=== PATIENT | female | born 2000 | race Caucasian/White ===

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

== ENCOUNTER 2019-01-25 16:09 | Inpatient (IN) | payer OTHER ==
--- NOTE | 2019-01-25 17:19 | ED ---
Psychiatric Complaint - HPI Summary HPI Summary: This pt is a 19 y/o female, accompanied by mother, presenting to [facility] for a mental health evaluation today. 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 She notes that when these episodes end she gets manic because she has all the energy she didn' t have during the disassociation. She states these episodes have been worsening since October 2018. Pt notes she is no longer productive at school and is close to a "breaking point" where she might do something "dumb." Denies SI, visual or auditory hallucinations. PMHx anxiety, depression. Pt sees a therapist regularly once a week, saw therapist 5 days ago and last saw therapist today. Per mother, Gabriella (therapist ) called pt's PCP but PCP can't see the pt until 3 days from now. Pt reports marijuana use denies any tobacco or alcohol use. - History Of Current Complaint Chief Complaint: EDMentalHealth Time Seen by Provider: 01/25/19 16:50 Hx Obtained From: Patient, Family/Director Emergency - Mother Hx Last Menstrual Period: on BCP's Onset/Duration: Lasting Weeks, Still Present Timing: Weeks Severity Currently: Moderate Aggravating Factor(s): Nothing Alleviating Factor(s): Nothing Associated Signs And Symptoms: Negative: Hallucinating Related History: Positive For: Prior Psychiatric Issues Has Suicidal: Denies: Thoughts, With A Plan Has Homicidal: Denies: Thoughts, With A Plan - Allergies/Home Medications Allergies/Adverse Reactions: Allergies Allergy/AdvReac Type Severity Reaction Status Date / Time No Known Allergies Allergy Verified 01/25/19 16:40 Home Medications: Home Medications Metformin ER (NF) 100 mg PO BID 01/25/19 [History Confirmed 01/25/19] Norgestimate-Ethinyl Estradiol [Sprintec 28 Day Tablet] 1 each PO DAILY [History Confirmed 01/25/19] PMH/Surg Hx/FS Hx/Imm Hx Endocrine/Hematology History: Denies: Hx Diabetes Cardiovascular History: Denies: Hx Hypertension Psychiatric History: Reports: Hx Anxiety, Hx Eating Disorder, Hx Depression Denies: Hx of Violent Episodes Against Others Infectious Disease History: No Infectious Disease History: Denies: Traveled Outside the [place] in Last 30 Days - Family History Known Family History: Positive: Hypertension Negative: Cardiac Disease, Diabetes - Social History Alcohol Use: Rare Substance Use Type: Reports: Marijuana Substance Use Comment - Amount & Last Used: 5 times a week Smoking Status (MU): Never Smoked Tobacco Have You Smoked in the Last Year: No Review of Systems Negative: Fever ENT: Negative Cardiovascular: Negative Respiratory: Negative Psychological: Other - POSITIVE: disassociation with body Negative: Other - NEGATIVE: SI, auditory or visual hallucinations All Other Systems Reviewed And Are Negative: Yes Physical Exam - Summary Physical Exam Summary: Constitutional: Well-developed, Well-nourished, Alert. (-) Distressed Skin: Warm, Dry HENT: Normocephalic; Atraumatic Eyes: Conjunctiva normal Neck: Musculoskeletal ROM normal neck. (-) JVD, (-) Stridor, (-) Tracheal deviation Cardio: Rhythm regular, rate normal, Heart sounds normal; Intact distal pulses; The pedal pulses are 2+ and symmetric. Radial pulses are 2+ and symmetric. Pulmonary/Chest wall: Effort normal. (-) Respiratory distress, (-) Wheezes, (-) Rales Abd: Soft, (-) tenderness, (-) Distension, (-) Guarding, (-) Rebound Musculoskeletal: (-) Edema Neuro: Alert, Oriented x3 Psych: Mood and affect Normal Triage Information Reviewed: Yes Vital Signs On Initial Exam: Initial Vitals Temp Pulse Resp BP Pulse Ox 97.8 F 100 18 135/98 98 01/25/19 16:17 01/25/19 16:17 01/25/19 16:17 01/25/19 16:17 01/25/19 16:17 Vital Signs Reviewed: Yes Procedures - Sedation Patient Received Moderate/Deep Sedation with Procedure: No Diagnostics - Vital Signs Vital Signs Temp Pulse Resp BP Pulse Ox 01/25/19 16:17 97.8 F 100 18 135/98 98 - Laboratory Result Diagrams: 01/25/19 22:56 01/25/19 22:56 Lab Statement: Any lab studies that have been ordered have been reviewed, and results considered in the medical decision making process. Course/Dx - Course Assessment/Plan: Pt is a 19 y/o female, accompanied by mother, presenting to [facility] for a mental health evaluation today. 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 She notes that when these episodes end she gets manic because she has all the energy she didn't have during the disassociation. She states these episodes have been worsening since October 2018. Pt notes she is no longer productive at school and is close to a "breaking point" where she might do something "dumb.". Patient is a healthy young woman. Pt will be signed out to Dr. Villegas, pending disposition, awaiting mental health evaluation. - Differential Dx/Clinical Impression Provider Diagnosis: Depressive disorder Discharge ED - Sign-Out/Discharge Documenting (check all that apply): Sign-Out Patient Signing out patient TO: Prakash Villegas - pending MHE - Discharge Plan Condition: Stable Disposition: [facility]CHIATRIC FACILITY-[facility] – [place], [place] - Billing Disposition and Condition Condition: STABLE Disposition: Psychiatric Facility [facility] [place], [place] - Attestation Statements Document Initiated by Arcelia: Yes Documenting Scribe: Jessica Fuentes Provider For Whom Arcelia is Documenting (Include Credential): Vincenzo Davis MD Scribe Attestation: Jessica Stewart, scribed for Vincenzo Davis MD on 02/07/19 at 0924. Scribe Documentation Reviewed: Yes Provider Attestation: The documentation as recorded by the Jessica keys accurately reflects the service I personally performed and the decisions made by me, Vincenzo Davis MD Status of Scribe Document: Viewed
--- OUTSIDE RECORDS SUMMARY | 2019-01-25 17:33 | XMS REPORT | Continuity of Care Document ---
:1999 External Reference #:[id number] Author Name Denise Roper MD, PHD Address [address] [place] [address], [address] [place] [address] Care Team Providers Name Role Phone Denise Roper MD, PHD - Family Care Team Information [facility] - Care Team Information [facility] [phone] Endocrinology, Diabetes & Metabolism Problems Active Problems Provider Date Polycystic ovary syndrome Denise Roper MD, PHD Onset: 05/31/2018 Morbid obesity Denise Roper MD, PHD Onset: 05/31/2018 Moderate recurrent major depression Denise Roper MD, PHD Onset: 2018 Premenstrual dysphoric disorder Denise Roper MD, PHD Onset: 05/31/2018 Venereal disease screening Denise Roper MD, PHD Onset: 05/31/2018 Edema Denise Roper MD, PHD Onset: 05/31/2018 Arthralgia of the ankle and/or foot Denise Roper MD, PHD Onset: 2018 Fibrositis of neck Denise Roper MD, PHD Onset: 06/14/2018 Polycystic ovary syndrome Denise Roper MD, PHD Onset: 08/23/2018 Dysfunctional uterine bleeding Denise Roper MD, PHD Onset: 08/23/2018 Autism spectrum disorder Denise Roper MD, PHD Onset: 09/13/2018 Sensory discomfort Denise Roper MD, PHD Onset: 09/13/2018 Social History Type Date Description Comments Sex Unknown Tobacco Use Start: Unknown Never Smoked Cigarettes Smoking Status Reviewed: 10/18/18 Never Smoked Cigarettes Tobacco Use Start: Unknown Patient has never smoked Allergies, Adverse Reactions, Alerts Description No Known Drug Allergies Medications Active Medications SIG Qnty Indications Ordering Provider Date Sprintec 28 1 tab by mouth 120tabs N92.1 Denise Roper, 10/18/2018 every day PHD AREN 0.25-35mg-mcg Tablets Hibiclens use on all skin 946ml A49.02 Denise Roper, 09/07/2018 4% Liquid as body wash for PHD AREN 5 days every month. Metformin HCL ER Take 2 Tablets 180tabs E28.2 Denise Roper, 05/31/2018 500mg By Mouth Every PHD AREN Tablets ER 24HR Morning B12 Fast Dissolve 1 tab by mouth 90tabs Denise Roper, 05/31/2018 every day PHD AREN 5000mcg Tablets Dispers Nac 600 1 cap by mouth 90caps Denise Roper, 05/31/2018 600mg Capsules three times a PHD AREN day after meals Chromium Picolinate 1 tab by mouth 90tabs Denise Roper, 05/31/2018 Ultra every morning PHD AREN 500mcg Tablets with 16oz water Cranberry 1 by mouth every Unknown 200mg day Capsules Multi Vitamin Daily 1 by mouth every Unknown day Tablets Calcium, Magnesium, 1 by mouth every Unknown Zinc day Vitamin D3 Maximum 1 a a week Unknown Strength 5000Unit Capsules Vitamin B-12 1 tabl by mouth Unknown Natural daily 1000mcg Tablets Topiramate 2 tabs by mouth 180tabs Denise Roper, 100mg every morning PHD AREN Tablets Venlafaxine HCL ER Take 1 Capsule 30caps F33.1 Denise Roper, Every Morning PHD AREN 150mg Caps ER 24HR With 75MG For Total Dose 225MG F32.81 History Medications Biotin 5000 1 by mouth every day [place], 12/14/2018 - 5mg MD Denise, Unknown Capsules PHD Biotin 1 by mouth every day [place], 12/14/2018 - 2500mcg MD Denise, 12/14/2018 Capsules PHD Biotin takes 2,000 mcg [place], 12/14/2018 - 1000mcg daily MD Denise, Unknown Tablets PHD Fluconazole 1 by mouth once 1tabs Z97.5 [place], 09/13/2018 - 150mg MD Denise, 10/18/2018 Tablets PHD Clindamycin HCL 1 cap by mouth twice 6caps Z97.5 [place], 09/13/2018 - a day for 3 days MD Denise, Unknown 300mg Capsules PHD Sprintec 28 1 tab by mouth every 168tabs N92.1 [place], 08/23/2018 - day continuously MD Denise, 09/07/2018 0.25-35mg-mcg PHD Tablets Immunizations Description No Information Available Vital Signs Date Vital Result Comment 12/14/2018 2:35pm BP Systolic 112 mmHg BP Diastolic 76 mmHg Body Temperature 97.9 F Heart Rate 88 /min Respiratory Rate 19 /min Weight 253.12 lb Weight Percentile >97th O2 % BldC Oximetry 98 % room air 10/18/2018 3:28pm BP Systolic 112 mmHg BP Diastolic 74 mmHg Body Temperature 97.8 F Heart Rate 94 /min Respiratory Rate 18 /min Height 62 inches 5'2" Weight 255.00 lb BMI (Body Mass Index) 46.6 kg/m2 BSA (Body Surface Area) 2.12 m2 [place] body weight in kilograms 50 kg Height Percentile 18 % Weight Percentile >97th O2 % BldC Oximetry 96 % Results Test Date Facility Test Result H/L Range Note Genital Culture 09/07/2018 [facility] Gram Stain GRAM STAIN 1, 2 W/ Gram Stain [address] INDIC <[place] [address] NOTE> [phone] Gram Stain MODERATE GR POS. <SEE NOTE> 3 Gram Stain NO WHITE BLOOD C <SEE NOTE> 4 Genital Culture GENITAL NOHEMY Chlmaydia/GC/Trichomonas 09/07/2018 [facility] Chlamydia NEGATIVE Negative PCR [address] trachomatis, [place] [address] PCR [phone] Neisseria gonorrhoeae, PCR NEGATIVE Negative 5 Trichomonas vaginalis PCR NEGATIVE Negative 1 Z30.430 2 GRAM STAIN INDICATES NORMAL GENITAL NOHEMY 3 MODERATE GR POS. BACILLI SUGGESTIVE OF LACTOBACILLUS SP. 4 NO WHITE BLOOD CELLS 5 A negative result for either C. trachomatis and/or N. gonorrhoeae does not preclued an infection because results are dependent on adequate specimen collection, absence of inhibitors, and sufficient DNA to be detected. 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, PHD arthritis R60.0 Localized edema M25.579 Pain in unspecified ankle and joints of unspecified foot E28.2 Polycystic ovarian syndrome M79.7 Fibromyalgia E66.01 Morbid (severe) obesity due to excess calories M54.5 Low back pain Office Visit 10/18/2018 3:30p Family Roper Z30.432 Encounter for Medicine Je Walker MD, removal of Main PHD intrauterine contraceptive device Z97.5 Presence of (intrauterine) contraceptive device E28.2 Polycystic ovarian syndrome N92.1 Excessive and frequent menstruation with irregular cycle F41.9 Anxiety disorder, unspecified M79.7 Fibromyalgia F32.81 Premenstrual dysphoric disorder Office Visit 09/13/2018 9:00a [facility] Kenny Roper Z97.5 Presence of Je Walker MD, (intrauterine) PHD contraceptive device F41.9 Anxiety disorder, unspecified Z13.41 Encounter for autism screening Office Visit 09/07/2018 8:30a Family Roper Z30.430 Encounter for Medicine Je Walker MD, insertion of Main PHD intrauterine contraceptive device E28.2 Polycystic ovarian syndrome E66.01 Morbid (severe) obesity due to excess calories L72.3 Sebaceous cyst N92.1 Excessive and frequent menstruation with irregular cycle F41.9 Anxiety disorder, unspecified Office Visit 08/23/2018 3:30p Family Kenny Roper F32.81 Premenstrual Je Walker MD, dysphoric disorder PHD E28.2 Polycystic ovarian syndrome E66.01 Morbid (severe) obesity due to excess calories M79.7 Fibromyalgia N92.1 Excessive and frequent menstruation with irregular cycle Assessments Date Code Description Provider 12/14/2018 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 Denise Roper MD, PHD 12/14/2018 R60.0 Localized edema Denise Roper MD, PHD 12/14/2018 M25.579 Pain in unspecified ankle and joints of Denise Roper MD, PHD unspecified foot 12/14/2018 E28.2 Polycystic ovarian syndrome Denise Roper MD, PHD 12/14/2018 M79.7 Fibromyalgia Denise Roper MD, PHD 12/14/2018 E66.01 Morbid (severe) obesity due to excess Denise Roper MD , PHD calories 12/14/2018 M54.5 Low back pain Denise Roper MD, PHD 10/18/2018 Z30.432 Encounter for removal of intrauterine Denise Roper MD , PHD contraceptive device 10/18/2018 Z97.5 Presence of (intrauterine) contraceptive Denise Roper MD, PHD device 10/18/2018 E28.2 Polycystic ovarian syndrome Denise Roper MD, PHD 10/18/2018 N92.1 Excessive and frequent menstruation with Denise Roper MD, PHD irregular cycle 10/18/2018 F41.9 Anxiety disorder, unspecified Denise Roper MD, PHD 10/18/2018 M79.7 Fibromyalgia Denise Roper MD, PHD 10/18/2018 F32.81 Premenstrual dysphoric disorder Denise Roper MD, PHD 09/13/2018 Z97.5 Presence of (intrauterine) contraceptive Denise Roper MD, PHD device 09/13/2018 F41.9 Anxiety disorder, unspecified Denise Roper MD, PHD 09/13/2018 Z13.41 Encounter for autism screening Denise Roper MD, PHD 09/07/2018 Z30.430 Encounter for insertion of intrauterine Denise Roper MD, PHD contraceptive device 09/07/2018 E28.2 Polycystic ovarian syndrome Denise Roper MD, PHD 09/07/2018 E66.01 Morbid (severe) obesity due to excess Denise Roper MD , PHD calories 09/07/2018 L72.3 Sebaceous cyst Denise Roper MD, PHD 09/07/2018 N92.1 Excessive and frequent menstruation with Denise Roper MD, PHD irregular cycle 09/07/2018 F41.9 Anxiety disorder, unspecified Denise Roper MD, PHD 08/23/2018 F32.81 Premenstrual dysphoric disorder Denise Roper MD, PHD 08/23/2018 E28.2 Polycystic ovarian syndrome Denise Roper MD, PHD 08/23/2018 E66.01 Morbid (severe) obesity due to excess Denise Roper MD , PHD calories 08/23/2018 M79.7 Fibromyalgia Denise Roper MD, PHD 08/23/2018 N92.1 Excessive and frequent menstruation with Denise Roper MD, PHD irregular cycle Plan of Treatment 12/14/2018 - Denise Roper MD, PHD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New Labs: Lyme Igg & Igm By Western Blot, Ordered: 12/14/18Sedimentation Rate, Ordered : 12/14/18C-Reactive Protein,Quant, Ordered: 12/14/18Celiac Disease Comp AB Profile, Ordered: 12/14/18Rheumatoid Factor Screen, Ordered: 12/14/18CCP Igg/ Iga Antibodies, Ordered: 12/14/18CBC W/Automated Diff, Ordered: Comprehensive Metabolic Panel, Ordered: 12/14/18Comprehensive Madhuri Panel, Ordered: 12/14/18New Xrays:Hand Complete 4 Views, Ordered: 12/14/18R60.0 Localized crpnrP89.579 Pain in unspecified ankle and joints of unspecified footNew Xrays:Ankle Complete- 4 Views, Ordered: 12/14/18E28.2 Polycystic ovarian ksjvtglqB68.7 VucangzbgandX22.01 Morbid (severe) obesity due to excess cgnuwdcbD07.5 Low back painNew Labs:Vitamin D,25-Hydroxy, Ordered: 12/14/18New Xrays:Spine, Lumbosacral Complete, Ordered: 12/14/18AllNew Medication:Biotin 5000 5 mg - 1 by mouth every dayBiotin 2500 mcg - 1 by mouth every dayBiotin 1000 mcg - takes 2,000 mcg daily Functional Status Functional Condition Comment Date Status Independent with all ADL's Active Mental Status Description No Information Available Referrals Refer to Reason for Referral Status Appt Date [facility] Need help with PCOS, Mood, Dysmenorrhea, Sent 2019 GnRH, Anti-mullerian, Obesity, etc. affecting mental health and physical health severely [address] [phone] [phone]
--- NOTE | 2019-01-25 19:34 | ED ---
Progress - Progress Note Progress Note: Pt is a signout from Dr. Davis at 1900 on 01/25/19 pending MHE. Re-Evaluation - Re-Evaluation 1st re-eval Re-Evaluation Time: 02:48 Change: Unchanged Comment: As per Dr. Morris, the pt will be admitted to [facility] with dx of depressive disorder. Course/Dx - Course Course Of Treatment: Patient was signed out from Dr. Davis. Patient was pending mental health evaluation. Mental health evaluators admitted patient to the B[facility]. - Diagnoses Provider Diagnoses: Depressive disorder Discharge ED - Sign-Out/Discharge Documenting (check all that apply): Patient Departure, Receiving Sign-Out Receiving patient FROM: Vincenzo Davis - Discharge Plan Condition: Stable Disposition: PSYCHIATRIC FACILITY-[facility] [place] Referrals: Care [facility] [Outside] - Billing Disposition and Condition Condition: STABLE Disposition: Psychiatric Facility [facility] [place] [facility] - Attestation Statements Document Initiated by Scribe: Yes Documenting Scribe: Danitza Mistry Provider For Whom Arcelia is Documenting (Include Credential): Prakash Villegas MD. Scribe Attestation: Danitza Stewart, chiquitaed for Prakash Villegas MD. on 01/26/19 at 0348. Scribe Documentation Reviewed: Yes Provider Attestation: The documentation as recorded by the Danitza keys accurately reflects the service I personally performed and the decisions made by Prakash sherman MD. Status of Scribe Document: Viewed
[2019-01-25 23:01] LABS: ABS Eosinophils 0.1 10^3/ul (0-0.6); ABS Lymphocytes 3.1 10^3/ul (1.0-4.8); ABS Monocytes 0.6 10^3/ul (0-0.8); ABS Neutrophils 3.4 10^3/ul (1.5-7.7); Eosinophil % 1.7 %; Hematocrit 42 % (35-47); Hemoglobin 14.4 g/dL (12.0-16.0); Lymphocyte % 42.7 %; Mean Corpuscular HGB Conc 34 g/dL (31-36); Mean Corpuscular Hemoglobin 30 pg (27-31); Mean Corpuscular Volume 88 fL (80-97); Mean Platelet Volume 6.9 fL (7.4-10.4); Platelet Count 277 10^3/uL (150-450); Red Blood Count 4.78 10^6 /uL (3.70-4.87); Red Cell Distribution Width 13 % (10-15); White Blood Count 7.3 10^3/uL (3.5-10.8)
[2019-01-25 23:18] LABS: ALT 11 U/L (7-52); AST 15 U/L (13-39); Albumin/Globulin Ratio 1.3 (1-3); Alkaline Phosphatase 57 U/L (34-104); Anion Gap 9 mmol/L (2-11); BUN/Creatinine Ratio 10.8 (8-20); Blood Urea Nitrogen 8 mg/dL (6-24); CO2 Carbon Dioxide 20 mmol/L (22-32); Calcium 9.1 mg/dL (8.6-10.3); Chloride 108 mmol/L (101-111); EGFR African American 121.1 (>60); EGFR Non-African American 100.1 (>60); Globulin 3.2 g/dL (2-4); Glucose 95 mg/dL (70-100); Potassium 3.6 mmol/L (3.5-5.0); Sodium 137 mmol/L (135-145); Total Protein 7.2 g/dL (6.4-8.9)
[2019-01-25 23:25] LABS: HCG Pregnancy < 0.60 mIU/mL
[2019-01-25 23:42] LABS: Acetaminophen < 15 mcg/mL; Alcohol < 10 mg/dL (<10); Salicylate < 2.50 mg/dL (<30)
[2019-01-25 23:58] LABS: TSH (Thyroid Stimulating Horm) 3.42 mcIU/mL (0.34-5.60)
[2019-01-26 00:29] LABS: Urine Appearance Turbid; Urine Bilirubin Negative (Negative); Urine Blood Negative (Negative); Urine Color Yellow; Urine Glucose Negative (Negative); Urine Ketones Negative (Negative); Urine Nitrite Negative (Negative); Urine Protein Negative (Negative); Urine Specific Gravity 1.017 (1.010-1.030); Urine Urobilinogen Negative (Negative)
[2019-01-26 00:45] LABS: Urine Benzodiazepine Screen None Detected (None Detect); Urine Opiates Screen None Detected (None Detect)
[2019-01-26] MEDS ORDERED: Al Hydrox/Mg Hydrox/Simet LIQ* 30 ML UDC PO PRN (05:39)
[2019-01-26] MEDS ORDERED: Influenza VAC *QUAD* 2019-20* 0.5 ML SYRINGE IM ONE (09:00)
[2019-01-26] MEDS: Vitamin THERAPEUTIC TAB PO SCH (09:42)
[2019-01-26] MEDS: Venlafaxine EXT RELEASE CAP* 75 MG PO SCH (09:42)
[2019-01-26] MEDS: Topiramate TAB(*) 100 MG PO SCH (09:42)
[2019-01-26] MEDS: SPRINTEC PO SCH (09:48)
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
[2019-01-26] MEDS ORDERED: metFORMIN* 500 MG TAB PO SCH (12:00)
[2019-01-26] MEDS: Acetaminophen TAB* 325 MG PO PRN (13:18)
[2019-01-26] MEDS: Venlafaxine EXT RELEASE CAP* 37.5 MG PO SCH (13:19)
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
[2019-01-26] MEDS: metFORMIN* 500 MG TAB PO SCH (19:37)
--- NOTE | 2019-01-26 20:28 | EEG ---
ELECTROENCEPHALOGRAPHY: DATE OF STUDY: 01/26/19 - ROOM #212 DATE READ: 01/26/19 ORDERED BY: Dr. Yakov Mcdonough. CLINICAL PROBLEM: Ms. Jenkins is a 19-year-old female with dissociation disorder that she feels like is getting worse. She has out of body dissociation. She feels like her limbs are detached throughout her body. This EEG was requested to evaluate for epileptiform discharges. CLINICAL STATE: Awake and sleep. REPORT: The waking background showed appropriate organization with clearly defined anterior-posterior voltage and frequency gradients. There was a well- defined posterior dominant rhythm of 10 Hz, which was symmetrical and showed normal reactivity. Anteriorly, there was an expected pattern of lower voltage, irregular, mixed faster frequency. There was an isolated small sharp spike that was seen in the left temporal region during drowsiness. This had a morphology that consisted with less than 50 microvolts as well as less than 50- millisecond sharp spike that is consistent with a normal variant called benign epileptiform transients of sleep. Hyperventilation and photic stimulation were not performed. Single electrode EKG showed normal sinus rhythm with a rate of 75 beats per minute. Attenuation of the occipital rhythm accompanied drowsiness. The sleep background was appropriately organized with well-developed spindles and vertex waves. These sleep transients showed appropriate morphology and are bilaterally synchronous and symmetrical. CLINICAL IMPRESSION: This is a normal awake and sleep EEG. There were no epileptiform discharges or electro-graphic seizures. A normal interictal EEG does not exclude or support the diagnosis of epilepsy. To increase the sensitivity of picking up interictal epileptiform discharges, a repeat study in 3-4 months may be required. [id number]/[facility] #: [id number] SAHARA
[2019-01-27] MEDS: Venlafaxine EXT RELEASE CAP* 75 MG PO SCH (08:55)
[2019-01-27] MEDS: Venlafaxine EXT RELEASE CAP* 37.5 MG PO SCH (08:55)
[2019-01-27] MEDS: metFORMIN* 500 MG TAB PO SCH ×2 (08:56→17:35)
[2019-01-27] MEDS: Vitamin THERAPEUTIC TAB PO SCH (08:56)
[2019-01-27] MEDS: Topiramate TAB(*) 100 MG PO SCH (08:57)
--- NOTE | 2019-01-27 10:43 | PN ---
Subjective - Subjective Date of Service: 01/27/19 Service Type: 84323 Hosp care 35 min high complexity Subjective: Nursing Report: Patient was visible on unit, no behavioral incidents. CC: "I had a event Patient was seen and evaluated today in the common room. The patient reported she had a dissociative event during the encounter. Her vital signs were recorded. She reported having an adequate appetite and interrupted sleep. The patient reports attending and participating in day groups. Per nursing no behavioral issues or overnight events reported. Objective - General Observations Appearance: Disheveled Appears Stated Age: Yes Stature: Overweight Posture: Slumped Eye Contact: Average Behavior/Activity: Accelerated - Interaction Observations Attitude Towards Examiner: Cooperative Stated Mood: Dysphoric Affect: Blunted Speech Pattern/Tone: Clear Thought Process: Coherent Perception: Depersonalization Thought Content: Self-Deprecatory Hallucination Type: None Delusion Type: Somatic - Cognitive Function Orientation: A&O x 4 Level of Consciousness: Awake Assessment - Assessment Merits Inpatient Hospitalization: For Immediate Safety Clinical Impression: 19 year old with history of Major depressive disorder, Panic disorder, PTSD, and multiple hospitalizations including to [facility] came to the hospital for having dissociating events and was admitted to the [facility] at [facility]. Plan - Plan Treatment Plan: Name: JAM Xiao CASE Birthdate: 2000 [id number] # Q30 minute observation with staff pass # The patient requires psychiatric inpatient admission at this time to assure safety, receive treatment and work toward stabilization. # B-HCG was ordered and results are negative. # Obtain collateral information obtained from her mother who confirmed no firearms, stockpiles of medications, and is not worried about suicide at this time. # Collaboration with Social Work # Neurology consulted completed and recommendations appreciated. EEG results are negative. # Discussed how Topamax can cause sedation and changes in cognition and how it can lead to an increase the events of dissociation. However the patient accepts these risks and prefers to decrease and discontinue medication on a outpatient basis. # Social work in process of securing a follow up appointment. # Tentative Discharge Tomorrow #Goals before discharge include: Reduce dissociation events Sodium 137 mmol/L (135-145) 01/25/19 22:56 Potassium 3.6 mmol/L (3.5-5.0) 01/25/19 22:56 BUN 8 mg/dL (6-24) 01/25/19 22:56 Creatinine 0.74 mg/dL (0.51-0.95) 01/25/19 22:56 Calcium 9.1 mg/dL (8.6-10.3) 01/25/19 22:56 AST 15 U/L (13-39) 01/25/19 22:56 ALT 11 U/L (7-52) 01/25/19 22:56 Vital Signs Temp Pulse Resp BP Pulse Ox 97.1 F 85 16 133/89 100 01/26/19 22:54 01/26/19 22:54 01/26/19 22:54 01/26/19 22:54 01/26/19 22:54 Continued Medication Management: Continue Outpt Medication Medications: Current Medications Acetaminophen (Tylenol Tab*) 650 mg PO Q4H PRN PRN Reason: PAIN or TEMP > 101 F Last Admin: 01/27/19 00:00 Dose: 650 mg Al Hydrox/Mg Hydrox/Simethicone (Maalox Plus*) 30 ml PO Q4H PRN PRN Reason: INDIGESTION Metformin HCl (Glucophage*) 500 mg PO 0800,1700 [facility] Last Admin: 01/27/19 08:56 Dose: 500 mg Multivitamins (Theragran Tab*) 1 tab PO DAILY [facility] Last Admin: 01/27/19 08:56 Dose: 1 tab Pto: Oral (Contraceptive) 1 dose PO QAM [facility] Last Admin: 01/26/19 09:48 Dose: Not Given Topiramate (Topamax(*)) 200 mg PO DAILY [facility] Last Admin: 01/27/19 08:57 Dose: 200 mg Venlafaxine HCl (Effexor Xr Cap*) 150 mg PO DAILY [facility] Last Admin: 01/27/19 08:55 Dose: 150 mg Venlafaxine HCl (Effexor Xr Cap*) 37.5 mg PO DAILY [facility] Last Admin: 01/27/19 08:55 Dose: 37.5 mg - Discharge Plan Discharge Plan: Inpatient Hospitalization
[2019-01-27] MEDS: SPRINTEC PO SCH (11:52)
[2019-01-27] MEDS: Acetaminophen TAB* 325 MG PO PRN ×2 (14:59)
[2019-01-27] MEDS ORDERED: Melatonin 3 MG TAB PO SCH (21:00)
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
[2019-01-28] MEDS: Topiramate TAB(*) 100 MG PO SCH (09:15)
[2019-01-28] MEDS: Vitamin THERAPEUTIC TAB PO SCH (09:15)
[2019-01-28] MEDS: metFORMIN* 500 MG TAB PO SCH (09:15)
[2019-01-28] MEDS: Venlafaxine EXT RELEASE CAP* 75 MG PO SCH (09:16)
[2019-01-28] MEDS: Venlafaxine EXT RELEASE CAP* 37.5 MG PO SCH (09:16)
[2019-01-28] MEDS: SPRINTEC PO SCH (09:17)
[2019-01-28 14:07] VITALS: BP 126/72
== END 2019-01-28 13:49 | disposition home or self-care (01) | DRG 754 ==
LOC: ED 16:09 → BSU 01-26 04:28
PROVIDERS: ADMIT Psychiatry & Neurology Psychiatry; ATTEND Psychiatry & Neurology Psychiatry
DX: F32.9 Major depressive disorder, single episode, unspecified (principal); R45.851 Suicidal ideations; Z68.42 Body mass index [BMI] 45.0-49.9, adult; F43.10 Post-traumatic stress disorder, unspecified; F41.0 Panic disorder [episodic paroxysmal anxiety]; E28.2 Polycystic ovarian syndrome; G89.4 Chronic pain syndrome; E66.9 Obesity, unspecified; Z62.810 Personal history of physical and sexual abuse in childhood; F44.9 Dissociative and conversion disorder, unspecified; Z79.899 Other long term (current) drug therapy; Z81.8 Family history of other mental and behavioral disorders; Z82.49 Family history of ischemic heart disease and other diseases of the circulatory system
CPT/HCPCS: 36415; 80053; 80061; 80307; 80320; 80329; 81003; 82607; 83036; 84443; 84702; 85025; 90686; 95819; 99222; 99233; 99238; 99283; A9270-GY; G0480

== ENCOUNTER 2019-02-08 11:39 | Emergency (ER) | payer OTHER ==
--- OUTSIDE RECORDS SUMMARY | 2019-02-08 11:47 | XMS REPORT | Continuity of Care Document ---
:2000 External Reference #:[id number] Author Name Denise Roper MD, PHD Address [address] [place] [address], [address] [place] [address] Care Team Providers Name Role Phone Denise Roper MD, PHD - Family Care Team Information Makeup Artist Medicine [facility] - Care Team Information Makeup Artist [phone] Endocrinology, Diabetes & Metabolism Problems Active Problems [...] Unknown Never Smoked Cigarettes Smoking Status Reviewed: 02/01/19 Never Smoked Cigarettes Tobacco Use Start: Unknown Patient has never smoked Allergies, Adverse Reactions, Alerts Description No Known Drug Allergies Medications Active Medications SIG Qnty Indications Ordering Provider Date Topiramate Take 3.5 tablets 120tabs Denise Roper, 02/01/2019 50mg daily for 1-2 PHD AREN Tablets weeks, then down 3 tablets daily for 1-2 weeks, will continue to taper off as tolerated. Gabapentin 1 caps by mouth 30caps M79.7 Denise Roper, 02/01/2019 100mg at bedtime as PHD AREN Capsules needed Hydroxyzine HCL 1-2 by mouth 14tabs Denise Roper, 01/16/2019 25mg three times a day PHD AREN Tablets as needed for anxiety Sprintec 28 1 tab by mouth 120tabs N92.1 Denise Roper, 10/18/2018 every day PHD AREN 0.25-35mg-mcg Tablets Hibiclens use on all skin 946ml A49.02 Denise Roper, 09/07/2018 4% Liquid as body wash for PHD AREN 5 days every month. Metformin HCL ER Take 2 Tablets By 180tabs E28.2 Denise Roper, 2018 Mouth Every PHD AREN 500mg Tablets ER Morning 24HR B12 Fast Dissolve 1 tab by mouth 90tabs Denise Roper, 05/31/2018 every day PHD AREN 5000mcg Tablets Dispers Nac 600 1 cap by mouth 90caps Denise Roper, 05/31/2018 600mg three times a day PHD AREN Capsules after meals Chromium Picolinate 1 tab by mouth 90tabs Denise Roper, 05/31/2018 Ultra every morning PHD AREN 500mcg Tablets with 16oz water Venlafaxine HCL ER 1 tablet daily by 90tabs Denise Roper, mouth PHD AREN 150mg Tablets ER 24HR Venlafaxine HCL ER 1 by mouth every 90caps Denise Roper, day PHD AREN 37.5mg Caps ER 24HR Cranberry 1 by mouth every Unknown 200mg day Capsules Multi Vitamin Daily 1 by mouth every Unknown day Tablets Calcium, Magnesium, 1 by mouth every Unknown Zinc day Vitamin D3 Maximum 1 a a week Unknown Strength 5000Unit Capsules Vitamin B-12 1 tabl by mouth Unknown Natural daily 1000mcg Tablets History Medications Biotin 5000 1 by mouth every day [facility], 12/14/2018 - 5mg MD Denise, Unknown Capsules PHD Biotin 1 by mouth every day [facility], 12/14/2018 - 2500mcg MD Denise, 12/14/2018 Capsules PHD Biotin takes 2,000 mcg [facility], 12/14/2018 - 1000mcg daily MD Denise, Unknown Tablets PHD Fluconazole 1 by mouth once 1tabs Z97.5 [facility], 09/13/2018 - 150mg MD Denise, 10/18/2018 Tablets PHD Clindamycin HCL 1 cap by mouth twice 6caps Z97.5 [facility], 09/13/2018 - a day for 3 days MD Denise, Unknown 300mg Capsules PHD Sprintec 28 1 tab by mouth every 168tabs N92.1 [facility], 08/23/2018 - day continuously MD Denise, 09/07/2018 0.25-35mg-mcg PHD Tablets Immunizations Description No Information Available Vital Signs Date Vital Result Comment 02/01/2019 3:20pm BP Systolic 117 mmHg BP Diastolic 81 mmHg Body Temperature 97.5 F Heart Rate 90 /min Respiratory Rate 16 /min Height 62 inches 5'2" Weight 254.00 lb BMI (Body Mass Index) 46.5 kg/m2 BSA (Body Surface Area) 2.12 m2 [place] body weight in kilograms 50 kg O2 % BldC Oximetry 98 % 12/14/2018 2:35pm BP Systolic 112 mmHg BP Diastolic 76 mmHg Body Temperature 97.9 F Heart Rate 88 /min Respiratory Rate 19 /min Weight 253.12 lb Weight Percentile >97th O2 % BldC Oximetry 98 % room air Results Test Date Facility Test Result H/L Range Note CBC Auto 01/25/2019 [facility] White Blood 7.3 10^3/ uL Normal 3.5-10.8 Diff [phone] Count Red Blood Count 4.78 10^6/uL Normal 3.70-4.87 Hemoglobin 14.4 g/dL Normal 12.0-16.0 Hematocrit 42 % Normal 35-47 Mean Corpuscular Volume 88 fL Normal 80-97 Mean Corpuscular Hemoglobin 30 pg Normal 27-31 Mean Corpuscular HGB Conc 34 g/dL Normal 31-36 Red Cell Distribution Width 13 % Normal 10-15 Platelet Count 277 10^3/uL Normal 150-450 Mean Platelet Volume 6.9 fL Low 7.4-10.4 Abs Neutrophils 3.4 10^3/uL Normal 1.5-7.7 Abs Lymphocytes 3.1 10^3/uL Normal 1.0-4.8 Abs Monocytes 0.6 10^3/uL Normal 0-0.8 Abs Eosinophils 0.1 10^3/uL Normal 0-0.6 Abs Basophils 0.0 10^3/uL Normal 0-0.2 Abs Nucleated RBC 0.0 10^3/uL Granulocyte % 46.7 % Lymphocyte % 42.7 % Monocyte % 8.4 % Eosinophil % 1.7 % Basophil % 0.5 % Nucleated Red Blood Cells % 0.0 Comp Metabolic 01/25/2019 [facility] Sodium 137 mmol/ L Normal 135-145 Panel [phone] Potassium 3.6 mmol/L Normal 3.5-5.0 Chloride 108 mmol/L Normal 101-111 Co2 Carbon Dioxide 20 mmol/L Low 22-32 Anion Gap 9 mmol/L Normal 2-11 Glucose 95 mg/dL Normal 70-100 Blood Urea Nitrogen 8 mg/dL Normal 6-24 Creatinine 0.74 mg/dL Normal 0.51-0.95 BUN/Creatinine Ratio 10.8 Normal 8-20 Calcium 9.1 mg/dL Normal 8.6-10.3 Total Protein 7.2 g/dL Normal 6.4-8.9 Albumin 4.0 g/dL Normal 3.2-5.2 Globulin 3.2 g/dL Normal 2-4 Albumin/Globulin Ratio 1.3 Normal 1-3 Total Bilirubin 0.20 mg/dL Normal 0.2-1.0 Alkaline Phosphatase 57 U/L Normal 34-104 Alt 11 U/L Normal 7-52 Ast 15 U/L Normal 13-39 Egfr Non- 100.1 >60 Egfr 121.1 >60 1 Laboratory test 01/25/2019 [facility] Acetaminophen < 15 g/mL 2 finding [phone] Alcohol < 10 mg/dL Normal <10 Salicylate < 2.50 mg/dL <30 HCG < 0.60 mIU/mL 3 TSH (Thyroid Stim Horm) 3.42 mcIU/mL Normal 0.34-5.60 Urinalysis Profile 01/25/2019 [facility] Urine Color Yellow [phone] Urine Appearance Turbid Urine Specific Morrison 1.017 Normal 1.010-1.030 Urine pH 7.0 Normal 5-9 Urine Urobilinogen Negative Negative Urine Ketones Negative Negative Urine Protein Negative Negative Urine Leukocytes Negative Negative Urine Blood Negative Negative Urine Nitrite Negative Negative Urine Bilirubin Negative Negative Urine Glucose Negative Negative Urine Drug 01/25/2019 [facility] Urine None Detected None Detect SCR ED & [phone] Amphetamine Pain Clinic Screen Urine Barbiturates Screen None Detected None Detect Urine Benzodiazepine Screen None Detected None Detect Urine Cannabinoids Screen None Detected None Detect Urine Cocaine Screen None Detected None Detect Urine Opiates Screen None Detected None Detect Urine Phencyclidine Screen None Detected None Detect 4 Laboratory test 01/25/2019 [facility] Vitamin B12 237 Normal 180-914 5 finding [phone] pg/mL Laboratory test 01/17/2019 [facility] Vitamin 45.8 30.0-100.0 6, [address] D,25-Hydrox ng/[place] [address] y [phone] Comprehensive Mahduri 01/17/2019 [facility] Anti-Dna <1 IU/mL 0-[address] [place] [address] ([place]) [phone] SM Antibody <0.2 AI 0.0-0.9 TRANSMISSION SUPERVISOR Antibody <0.2 AI 0.0-0.9 Sjogrens Antibodies (Ssa) <0.2 AI 0.0-0.9 Antichromatin Antibodies <0.2 AI 0.0-0.9 Keyonna-1 Antibody <0.2 AI 0.0-0.9 Sjogrens Antibodies (SSB) <0.2 AI 0.0-0.9 Centromere B Antibodies < 0.2 AI 0.0-0.9 Scleroderma Antibodies, SCL-70 <0.2 AI 0.0-0.9 See below: (SEE NOTE) 9 Comprehensive 01/17/2019 [facility] Glucose 89 mg/dL Normal 74-106 Metabolic Panel [address] [place], [place] [id number] [phone] BUN 8 mg/dL Normal 7-18 Creatinine 0.8 mg/dL Normal 0.6-1.3 Glom Filtration Rate, Estimate >60 mL/min >60 If >60 mL/min >60 10 BUN/Creat 10.0 ratio Sodium 140 mmol/L Normal 136-145 Potassium 3.8 mmol/L Normal 3.5-5.1 Chloride 112 mmol/L High 98-107 Carbon Dioxide 20 mmol/L Low 21-32 Anion Gap 8 mEq/L Normal 8-16 Calcium 8.8 mg/dL Normal 8.5-10.1 Total Protein 7.2 g/dL Normal 6.4-8.2 Albumin 3.3 g/dL Low 3.4-5.0 Globulin 3.9 g/dL Normal 1.9-4.3 Alb/Glob 0.8 ratio Bilirubin,Total 0.3 mg/dL Normal 0.2-1.0 Sgot/Ast 14 U/L Low 15-37 11 SGPT/Alt 18 U/L Normal 12-78 Alkaline Phosphatase 61 U/L Normal 45-117 CBC W/Automated 01/17/2019 [facility] White Blood 6.5 K/uL Normal 3.1-10.[address] [place] [address] [phone] Red Blood Count 4.58 M/uL Normal 3.90-5.40 Hemoglobin 13.4 gm/dL Normal 11.6-15.8 Hematocrit 41.7 % Normal 36.0-46.1 Mean Cell Volume 91.0 fl Normal 80.9-99.0 Mean Corpuscular HGB 29.3 pg Normal 25.9-32.7 Mean Corpuscular HGB Conc 32.1 g/dL Normal 30.8-34.3 Platelet Count 304 K/uL Normal 155-360 Red Cell Distri Width SD 42.5 fl Normal 36-47 Red Cell Distri Width %CV 13.0 % Normal 11.7-14.4 Mean Platelet Volume 9.4 fl Normal 8.9-12.4 Neut% 52.2 % Normal 28.0-68.0 Lymph % 37.8 % Normal 20.0-42.0 [place] % 6.5 % Normal 4.3-13.2 Eo% 2.9 % Normal 0.0-6.6 Bas% 0.3 % Normal 0.0-1.1 Immature Grans 0.3 % Normal 0.0-5.0 NRBC % 0.0 /100WBC < 10/ 100 WBC Neut# 3.36 K/uL Normal 1.8-7.0 Lymph # 2.44 K/uL Normal 1.0-4.0 [place] # 0.42 K/uL Normal 0.3-0.9 Eos # 0.19 K/uL Normal 0.0-0.5 Baso # 0.02 K/uL Normal 0.0-0.1 Immature Grans Absolute 0.02 K/uL NRBC # 0.00 K/uL CCP Igg/Iga 01/17/2019 [facility] CCP Igg/Iga 7 units 0-[address] Antibodies [place], [place] [id number] [phone] Laboratory 01/17/2019 [facility] Rheumatoid Factor < 10.0 Normal 0.0-15. test finding [address] Screen IU/mL 0 [place] [address] [phone] Celiac Disease 01/17/2019 [facility] Immunoglobulin A 303 87-352 Comp AB [address] mg/[place] [address] [phone] Antigliadin Abs, IgG 2 units 0-19 13 Antigliadin Abs, IgA 4 units 0-19 14 Endomysial IgA Antibody Negative Negative t-Transglutaminase IgA <2 U/mL 0-3 15 t-Transglutaminase IgG <2 U/mL 0-5 16 Laboratory test 01/17/2019 [facility] Sedimentation Rate 72 mm/hr High 2-40 [address] [place] [address] [phone] C-Reactive Protein,Quant 8.6 mg/L High <3.0 Lyme Igg & Igm By 01/17/2019 [facility] Lyme AB Igg By Western . Western Blot [address] [place] [address] [phone] P93 AB Absent . P66 AB Absent . P58 AB Absent . P45 AB Absent . P41 AB Present Abnormal . P39 AB Absent . P30 AB Absent . P28 AB Absent . P23 AB Absent . P18 AB Absent . Lyme Igg WB Interpretation Negative . 18 Lyme AB Igm By Western Blot . P41 AB Absent . P39 AB Absent . P23 AB Absent . Lyme Igm WB Interpretation Negative . 19 Genital Culture W09/07/2018 [facility] Gram Stain GRAM STAIN 20, 21 Gram Stain [address] INDIC <[place] [address] NOTE> [phone] Gram Stain MODERATE GR POS. <SEE NOTE> 22 Gram Stain NO WHITE BLOOD C <SEE NOTE> 23 Genital Culture GENITAL NOHEMY Chlmaydia/GC/Trichomonas 09/07/2018 [facility] Chlamydia NEGATIVE Negative PCR [address] trachomatis, [place] [address] PCR [phone] Neisseria gonorrhoeae, PCR NEGATIVE Negative 24 Trichomonas vaginalis PCR NEGATIVE Negative 1 Because ethnic data is not always readily available, this report includes an eGFR for both -Americans and non- Americans. The National Kidney Disease Education Program (NKDEP) does not endorse the use of the MDRD equation for patients that are not between the ages of 18 and 70, are , have extremes of body size, muscle mass, or nutritional status, or are non- or non-. According to the National Kidney Foundation, irrespective of diagnosis, the stage of the disease is based on the level of kidney function: Stage Description GFR(mL/min/1.73 m(2)) 1 Kidney damage with normal or decreased GFR 90 2 Kidney damage with mild decrease in GFR 60-89 3 Moderate decrease in GFR 30-59 4 Severe decrease in GFR 15-29 5 Kidney failure <15 (or dialysis) 2 Therapeutic concentration: <50 ug/mL Toxic concentration: >120 ug/mL 3 <5.0 Negative 5.0 - 25.0 Indeterminate (Repeat testing recommended after 72 hours) >25.0 Positive Perimenopausal women can display HCG levels of up to 20 mIU/mL 4 The urine specimen was tested at the listed cutoffs: Drug class test level (ng/mL) Amphetamines 500 Barbiturates 200 Benzodiazepine metabolites 200 Cocaine metabolites 150 Cannabinoids 50 Opiates 300 Pcp 25 Specimen was received without chain of custody. Results should be used for medical purposes only. 5 Normal Range 180 to 914 Indeterminate Range 145 to 180 Deficient Range <145 6 M15.3 M54.5 7 Vitamin D deficiency has been defined by the Jansen of Medicine and an Endocrine Society practice guideline as a level of serum 25-OH vitamin D less than 20 ng/mL (1,2). The Endocrine Society went on to further define vitamin D insufficiency as a level between 21 and 29 ng/mL (2). 1. IOM ([employer]ansen of Medicine). 2010. Dietary reference intakes for calcium and D. [place]: The National Academies Press. 2. Del PALMER, Quoc VAZQUEZ, Ale MURPHY, et al. Evaluation, treatment, and prevention of vitamin D deficiency: an Endocrine Society clinical practice guideline. JCEM. 2010; 96(7):1911-30. Performed at: - [facility] [id number] [facility] Technician: Carola Almonte MD, Phone: [phone] Negative <5 Equivocal 5 - 9 Positive >9 9 Autoantibody Disease Association Condition Frequency --------- Antinuclear Antibody, SLE, mixed connective Direct (MADHURI-D) tissue diseases --------- dsDNA SLE 40 - 60% --------- Chromatin Drug induced SLE 90% SLE 48 - 97% --------- SSA (Ro) SLE 25 - 35% Sjogren's Syndrome 40 - 70% Lupus 100% --------- SSB (La) SLE 10% Sjogren's Syndrome 30% --------- Sm (anti-Meléndez) SLE 15 - 30% --------- TRANSMISSION SUPERVISOR Mixed Connective Tissue Disease 95% (U1 nRNP, SLE 30 - 50% anti-ribonucleoprotein) Polymyositis and/or Dermatomyositis 20% --------- Scl-70 (antiDNA Scleroderma (diffuse) 20 - 35% topoisomerase) Crest 13% --------- Keyonna-1 Polymyositis and/or Dermatomyositis 20 - 40% --------- Centromere B Scleroderma - Crest variant 80% 10 Note: Persistent reduction for 3 months or more in an eGFR <60 mL/min/1.73 m2 defines CKD. Patients with eGFR values >/=60 mL/min/1.73 m2 may also have CKD if evidence of persistent proteinuria is present. The original MDRD equation for estimated GFR is not valid for patients less than 18 years of age. Additional information may be found at www.kdoqi.org. 11 Values below the stated reference ranges of AST and ALT can be seen in normal populations. Clinical correlation is suggested. 12 Negative <20 Weak positive 20 - 39 Moderate positive 40 - 59 Strong positive >59 13 Negative 0 - 19 Weak Positive 20 - 30 Moderate to Strong Positive >30 14 Negative 0 - 19 Weak Positive 20 - 30 Moderate to Strong Positive >30 15 Negative 0 - 3 Weak Positive 4 - 10 Positive >10 Tissue Transglutaminase (tTG) has been identified as the endomysial antigen. Studies have demonstr- ated that endomysial IgA antibodies have over 99% specificity for gluten sensitive enteropathy. 16 Negative 0 - 5 Weak Positive 6 - 9 Positive >9 17 This result was obtained with an ESR method that is not based on the standard Westergren Method. When comparing results obtained from the traditional Westergren ESR and this method it is important to refer to the reference range for each method. Method: Capillary Photometry 18 Positive: 5 of the following Borrelia-specific bands: 18,23,28,30,39,41,45,58, 66, and 93. Negative: No bands or banding patterns which do not meet positive criteria. 19 Note: An equivocal or positive EIA result followed by a negative Line Blot result is considered NEGATIVE. An equivocal or positive EIA result followed by a positive Line Blot is considered POSITIVE by the CDC. Positive: 2 of the following bands: 23,39 or 41 Negative: No bands or banding patterns which do not meet positive criteria. Criteria for positivity are those recommended by CDC/ASTPHLD. p23=Osp C, l89=jygxtfmxz Note: Sera from individuals with the following may cross react in the Lyme Line Blot assays: other spirochetal diseases (periodontal disease, leptospirosis, relapsing fever, yaws, and pinta); connective autoimmune (Rheumatoid Arthritis and Systemic Lupus Erythematosus and also individuals with Antinuclear Antibody); other infections (Dexter Spotted Fever; Immanuel-Figueroa Virus, and Cytomegalovirus). Performed at: [address] [id number] [facility] Technician: Carola Almonte MD, Phone: [phone] Performed at: [address] [id number] [facility] Technician: Ramana Flores MD, Phone: [phone] 20 R20.969 21 GRAM STAIN INDICATES NORMAL GENITAL NOHEMY 22 MODERATE GR POS. BACILLI SUGGESTIVE OF LACTOBACILLUS SP. 23 NO WHITE BLOOD CELLS 24 A negative result for either C. trachomatis and/or N. gonorrhoeae does not preclued an infection because results are dependent on adequate specimen collection, absence of inhibitors, and sufficient DNA to be detected. 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, PHD arthritis R60.0 Localized edema M25.579 Pain in unspecified ankle and joints of unspecified foot E28.2 Polycystic ovarian syndrome M79.7 Fibromyalgia E66.01 Morbid (severe) obesity due to excess calories M54.5 Low back pain Office Visit 10/18/2018 3:30p Family Roper Z30.432 Encounter for Kenny Walker MD, removal of Main PHD intrauterine contraceptive device Z97.5 Presence of (intrauterine) contraceptive device E28.2 Polycystic ovarian syndrome N92.1 Excessive and frequent menstruation with irregular cycle F41.9 Anxiety disorder, unspecified M79.7 Fibromyalgia F32.81 Premenstrual dysphoric disorder Office Visit 09/13/2018 9:00a Family Kenny Roper Z97.5 Presence of Je Walker MD, (intrauterine) PHD contraceptive device F41.9 Anxiety disorder, unspecified Z13.41 Encounter for autism screening Office Visit 09/07/2018 8:30a Angela Mcgovern30.430 Encounter for Kenny Walker MD, insertion of Main PHD intrauterine contraceptive device E28.2 Polycystic ovarian syndrome E66.01 Morbid (severe) obesity due to excess calories L72.3 Sebaceous cyst N92.1 Excessive and frequent menstruation with irregular cycle F41.9 Anxiety disorder, unspecified Office Visit 08/23/2018 3:30p Family Medicine Jacquelin, F32.81 Premenstrual [facility] MD Denise, dysphoric disorder PHD E28.2 Polycystic ovarian syndrome E66.01 Morbid (severe) obesity due to excess calories M79.7 Fibromyalgia N92.1 Excessive and frequent menstruation with irregular cycle Assessments Date Code Description Provider 02/01/2019 F41.9 Anxiety disorder, unspecified Denise Roper MD, PHD 02/01/2019 M79.7 Fibromyalgia Denise Roper MD, PHD 02/01/2019 F33.1 Major depressive disorder, recurrent, Denise Roper MD, PHD moderate 02/01/2019 R53.83 Other fatigue Denise Roper MD, PHD 12/14/2018 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 Try taking 3.5 of the 50mg tablets instead of 2 of the 100mg tablets first (from 200mg to 175mg), then down to 3x50mg when you can - can stay at a dose for a week or two if you have to. Continue current high dose of Venlafaxine for now.M79.7 FibromyalgiaNew Medication:Gabapentin 100 mg - 1 caps by mouth at bedtime as neededFollow up:1 month follow upF33.1 Major depressive disorder, recurrent, akhvjvnhD78.83 Other fatigue Functional Status Functional Condition Comment Date Status Independent with all ADL's Active Mental Status Description No Information Available Referrals Refer to Reason for Referral Status Appt Date [facility] Need help with PCOS, Mood, Dysmenorrhea, Sent 2019 GnRH, Anti-mullerian, Obesity, etc. affecting mental health and physical health [id number] [place] [address] [phone]
[2019-02-08 11:49] VITALS: BP 136/83
--- NOTE | 2019-02-08 12:13 | UC ---
Psychiatric Complaint HPI - HPI Summary HPI Summary: 19 y/o female with hx of PTSD , anxiety and depression has been weaning off her medication Topomax for the past one week has been feeling fatigue , worsening of her PTSD symptoms has been having suicidal thoughts, hx of committing the act of suicide with medication over dose , denies having any plans at the moment. she spoke to her therapist and was recommended to be seen at the urgent care - History Of Current Complaint Chief Complaint: UCPsych Stated Complaint: FATIGUE,SUICIDAL THOUGHTS Time Seen by Provider: 02/08/19 11:42 Hx Obtained From: Patient Hx Last Menstrual Period: 01/09/19 ?: No Onset/Duration: Gradual Onset, Lasting Days - 7, Still Present Timing: Constant Severity Initially: Moderate Severity Currently: Moderate Character: Depressed, Fearful, Anxious, Frustrated, Lethargic Aggravating Factor(s): Other - stoping current medication / topomax Alleviating Factor(s): Medication, Counseling Related History: Positive For: Prior Psychiatric Issues - PTSD Has Suicidal: With A Plan - Allergies/Home Medications Allergies/Adverse Reactions: Allergies Allergy/AdvReac Type Severity Reaction Status Date / Time No Known Allergies Allergy Verified 02/08/19 11:49 Home Medications: Home Medications Gabapentin CAP(*) [Neurontin 100 mg CAP(*)] 100 mg PO DAILY 02/08/19 [History Confirmed 02/08/19] Topiramate TAB(*) [Topamax 100 mg tab] 175 mg PO DAILY 02/08/19 [History] PMH/Surg Hx/FS Hx/Imm Hx Psychological History: Anxiety, Depression, Post Traumatic Stress Disorder - Surgical History Surgical History: None - Family History Known Family History: Positive: Hypertension Negative: Cardiac Disease, Diabetes - Social History Alcohol Use: None Substance Use Type: Marijuana Substance Use Comment - Amount & Last Used: 5 times a week Smoking Status (MU): Never Smoked Tobacco Have You Smoked in the Last Year: No - Immunization History Most Recent Influenza Vaccination: 01/27/19 Most Recent Pneumonia Vaccination: n/a Vaccination Up to Date: Yes Review of Systems All Other Systems Reviewed And Are Negative: Yes Constitutional: Positive: Fatigue Psychological: Positive: Anxious Is Patient Immunocompromised?: No Physical Exam Triage Information Reviewed: Yes Appearance: Well-Appearing, No Pain Distress, Well-Nourished Vital Signs: Initial Vital Signs Temp 98.4 F 02/08/19 11:42 Pulse 87 10/15/19 11:42 Resp 15 02/08/19 11:42 BP 136/83 02/08/19 11:42 Pulse Ox 97 02/08/19 11:42 Vital Signs Reviewed: Yes Eye Exam: Normal Eyes: Positive: Conjunctiva Clear ENT: Positive: Normal ENT inspection, Hearing grossly normal Neck: Positive: Supple, Nontender, No Lymphadenopathy Respiratory: Positive: Chest non-tender, Lungs clear, Normal breath sounds Cardiovascular: Positive: RRR, No Murmur, Pulses Normal Neurological Exam: Normal Neurological: Positive: Alert UC Physical Exam Vital Signs On Initial Exam: Initial Vitals Temp Pulse Resp BP Pulse Ox 98.4 F 87 15 136/83 97 02/08/19 11:42 02/08/19 11:42 02/08/19 11:42 02/08/19 11:42 02/08/19 11:42 - Psychiatric Exam Psychiatric: Anxious, Depressed Mood: Depressed, Angry, Agitated Appearance: Agitated, Anxious Thought Process: Illlogical Patient Medically Stable for Psych Evaluation/Referral/Trans: Yes Psych Complaint Course/Dx - Course Course Of Treatment: will transfer the pt. to [facility] ED for evaluation - Differential Dx/Diagnosis Differential Diagnosis/HQI/PQRI: Suicidal Ideation Provider Diagnosis: PTSD (post-traumatic stress disorder), Suicidal ideations Discharge ED - Sign-Out/Discharge Documenting (check all that apply): Patient Departure All imaging exams completed and their final reports reviewed: No Studies - Discharge Plan Condition: Stable Disposition: TRANS HIGHER LVL OF CARE FAC Referrals: Denise Roper MD [Primary Care Provider] - - Billing Disposition and Condition Condition: STABLE Disposition: Trans Higher Lvl of Care Fac
== END 2019-02-08 12:30 | disposition short-term general hospital (02) ==
LOC: UCCORT 11:39
DX: F43.10 Post-traumatic stress disorder, unspecified (principal); R45.851 Suicidal ideations; F32.9 Major depressive disorder, single episode, unspecified; F41.9 Anxiety disorder, unspecified
CPT/HCPCS: 99213; G0463

== ENCOUNTER 2019-02-28 20:22 | Emergency (ER) | payer OTHER ==
[2019-02-28 20:57] LABS: ABS Eosinophils 0.2 10^3/ul (0-0.6); ABS Monocytes 0.6 10^3/ul (0-0.8); ABS Neutrophils 3.7 10^3/ul (1.5-7.7); Eosinophil % 2.5 %; Hematocrit 41 % (35-47); Hemoglobin 13.5 g/dL (12.0-16.0); Lymphocyte % 39.8 %; Mean Corpuscular HGB Conc 33 g/dL (31-36); Mean Corpuscular Hemoglobin 30 pg (27-31); Mean Corpuscular Volume 89 fL (80-97); Mean Platelet Volume 6.7 fL (7.4-10.4); Platelet Count 276 10^3/uL (150-450); Red Blood Count 4.58 10^6 /uL (3.70-4.87); Red Cell Distribution Width 12 % (10-15); White Blood Count 7.6 10^3/uL (3.5-10.8)
--- NOTE | 2019-02-28 21:09 | ED ---
Psychiatric Complaint - HPI Summary HPI Summary: The patient is a 19 y/o F presenting to [facility] with a chief complaint of suicidal thoughts today. She reports that she had been texting her therapist jessy because she is having suicidal thoughts. She does not have a specified plan, but she states that she doesnt want to feel anything need to find an option. She also notes that she is stressed and feels herself dissociating. She is medication compliant for Effexor, Topamax, Gabapentin, and Metformin, and there have not been any recent changes, although she is weening off Topamax. She notes history of suicide attempts with overdosing four times. She is not currently in any pain. PMHx: DM, anxiety, depression, eating disorder, PTSD, inpatient treatment. Nonsmoker, no EtOH, marijuana use. Medications reviewed. Allergies noted. - History Of Current Complaint Chief Complaint: EDSuicidal Time Seen by Provider: 02/28/19 20:48 Hx Obtained From: Patient Hx Last Menstrual Period: 01/09/19 Onset/Duration: Gradual Onset, Lasting Hours, Still Present Timing: Hours Severity Initially: Mild Severity Currently: Moderate Character: Depressed Aggravating Factor(s): Recent Stress Alleviating Factor(s): Nothing Related History: Positive For: Prior Psychiatric Issues - anxiety, depression, PTSD, eating disorder Has Suicidal: Reports: Thoughts, Has Prior Attempt(s). Denies: With A Plan - Allergies/Home Medications Allergies/Adverse Reactions: Allergies Allergy/AdvReac Type Severity Reaction Status Date / Time No Known Allergies Allergy Verified 02/08/19 11:49 Home Medications: Home Medications Cholecalciferol (Vitamin D3) [Vitamin D3] 5,000 unit PO DAILY WITH MEAL [History Confirmed 02/28/19] Metformin ER (NF) 1,000 mg PO QAM 02/28/19 [History Confirmed 02/28/19] busPIRone TAB* [Buspar TAB*] 10 mg PO TID PC 02/28/19 [History Confirmed ] PMH/Surg Hx/FS Hx/Imm Hx Endocrine/Hematology History: Reports: Hx Diabetes Cardiovascular History: Denies: Hx Hypertension Musculoskeletal History: Reports: Hx Back Problems Sensory History: Reports: Hx Contacts or Glasses Denies: Hx Hearing Aid Opthamlomology History: Reports: Hx Contacts or Glasses Psychiatric History: Reports: Hx Anxiety, Hx Eating Disorder, Hx Depression, Hx Post Traumatic Stress Disorder, Hx Inpatient Treatment - x 4, Hx Community Mental Health Tx Denies: Hx of Violent Episodes Against Others - Surgical History Surgical History: None Surgery Procedure, Year, and Place: none Infectious Disease History: Yes Infectious Disease History: Denies: Traveled Outside the [place] in Last 30 Days - Family History Known Family History: Positive: Hypertension Negative: Cardiac Disease, Diabetes - Social History Alcohol Use: None Hx Substance Use: Yes Substance Use Type: Reports: Marijuana Substance Use Comment - Amount & Last Used: 5 times a week Hx Tobacco Use: No Smoking Status (MU): Never Smoked Tobacco Have You Smoked in the Last Year: No Review of Systems - ROS Summary Review of Systems Summary: Home Medications Medication Instructions Recorded Confirmed Type Metformin ER (NF) 100 mg PO BID 01/25/19 02/08/19 History Norgestimate-Ethinyl Estradiol 1 each PO DAILY 01/25/19 02/08/19 History [Sprintec 28 Day Tablet] Melatonin 3 mg PO 2100 tab 01/28/19 02/08/19 Rx Venlafaxine EXT RELEASE CAP* 37.5 mg PO DAILY #14 cap.sr 01/28/19 02/08/19 Rx [Effexor Xr CAP*] Venlafaxine EXT RELEASE CAP* 150 mg PO DAILY #28 cap.sr 01/28/19 02/08/19 Rx [Effexor Xr CAP*] metFORMIN* [Glucophage 500 MG TAB 500 mg PO 0800,1700 tab 01/28/19 02/08/19 Rx *] Gabapentin CAP(*) [Neurontin 100 100 mg PO DAILY 02/08/19 02/08/19 History mg CAP(*)] Topiramate TAB(*) [Topamax 100 mg 175 mg PO DAILY 02/08/19 History tab] Negative: Fever Positive: Depressed, Other - suicidal thoughts, stressed All Other Systems Reviewed And Are Negative: Yes Physical Exam - Summary Physical Exam Summary: General: Well-developed, Well-nourished female. No acute distress. HEENT: Normocephalic, Atraumatic. Eyes: Conjuctiva normal, PERRL. Ears: TMs within normal limits. Nares: (-) discharge, (-) erythema. Oropharynx: Clear, mucous membranes moist, (-) exudates. Neck: Soft, FROM, (-) lymphadenopathy, (-) thyromegaly, (-) JVD. Cardiovascular: Normal sinus rhythm, (-) murmur. Lungs: Clear to auscultation bilaterally (-) wheezes, (-) rales, (-) rhonchi. Abdomen: Soft, non-tender, non-distended, (-) organomegaly, normal bowel sounds. Back: (-) CVA tenderness Extremities: No edema. Skin: Warm, dry, (-) rash. Neuro: Alert and oriented x3, no focal deficits. Psychiatric: Depressed mood, affect normal. Triage Information Reviewed: Yes Vital Signs On Initial Exam: Initial Vitals Temp Pulse Resp BP Pulse Ox 99.1 F 100 17 147/95 98 02/28/19 20:34 02/28/19 20:34 02/28/19 20:34 02/28/19 20:34 02/28/19 20:34 Vital Signs Reviewed: Yes Procedures - Sedation Patient Received Moderate/Deep Sedation with Procedure: No Diagnostics - Vital Signs Vital Signs Temp Pulse Resp BP Pulse Ox 02/28/19 20:34 99.1 F 100 17 147/95 98 - Laboratory Lab Results: Lab Results 02/28/19 Range/Units 20:51 WBC 7.6 (3.5-10.8) 10^3/uL RBC 4.58 (3.70-4.87) 10^6 /uL Hgb 13.5 (12.0-16.0) g/dL Hct 41 (35-47) % MCV 89 (80-97) fL MCH 30 (27-31) pg MCHC 33 (31-36) g/dL RDW 12 (10-15) % Plt Count 276 (150-450) 10^3/uL MPV 6.7 L (7.4-10.4) fL Neut % (Auto) 48.7 % Lymph % (Auto) 39.8 % [place] % (Auto) 8.5 % Eos % (Auto) 2.5 % Baso % (Auto) 0.5 % Absolute Neuts (auto) 3.7 (1.5-7.7) 10^3/ul Absolute Lymphs (auto) 3.0 (1.0-4.8) 10^3/ul Absolute Monos (auto) 0.6 (0-0.8) 10^3/ul Absolute Eos (auto) 0.2 (0-0.6) 10^3/ul Absolute Basos (auto) 0.0 (0-0.2) 10^3/ul Absolute Nucleated RBC 0.0 10^3/ul Nucleated RBC % 0.0 Result Diagrams: 02/28/19 20:48 02/28/19 20:48 Lab Statement: Any lab studies that have been ordered have been reviewed, and results considered in the medical decision making process. Re-Evaluation - Re-Evaluation First Eval Re-Evaluation Time: 21:24 Change: Unchanged Comment: Pt is medically clear for mental health evaluation. Course/Dx - Course Course Of Treatment: 19-year-old female for mental health evaluation. Patient slept soundly awaiting mental health evaluation. She is signed out at change of shift still awaiting mental health evaluation. - Differential Dx/Clinical Impression Provider Diagnosis: Suicidal ideation Discharge ED - Sign-Out/Discharge Documenting (check all that apply): Sign-Out Patient Signing out patient TO: Kaylen Curiel - Patient is a sign-out to Dr. Kaylen Curiel MD, at 0700 on 03/01/2019, pending MHE and disposition. - Discharge Plan Condition: Stable Disposition: HOME Patient Education Materials: Depression (ED) Referrals: Denise Roper MD [Primary Care Provider] - - Billing Disposition and Condition Condition: STABLE Disposition: Home - Attestation Statements Document Initiated by Sanjayibe: Yes Documenting Scribe: Letty Kirkpatrick Provider For Whom Arcelia is Documenting (Include Credential): Dr. Rochelle Lindsay MD Scribe Attestation: Letty Stewart scribed for Dr. Rochelle Lindsay MD on 03/02/19 at 0224. Scribe Documentation Reviewed: Yes Provider Attestation: The documentation as recorded by the Letty keys accurately reflects the service I personally performed and the decisions made by me, Dr. Rochelle Lindsay MD Status of Scribe Document: Viewed
[2019-02-28 21:14] LABS: ALT 14 U/L (7-52); AST 17 U/L (13-39); Albumin 3.7 g/dL (3.2-5.2); Albumin/Globulin Ratio 1.1 (1-3); Alkaline Phosphatase 55 U/L (34-104); Anion Gap 8 mmol/L (2-11); BUN/Creatinine Ratio 11.1 (8-20); Blood Urea Nitrogen 8 mg/dL (6-24); CO2 Carbon Dioxide 22 mmol/L (22-32); Calcium 9.1 mg/dL (8.6-10.3); Chloride 107 mmol/L (101-111); EGFR Non-African American 103.3 (>60); Globulin 3.4 g/dL (2-4); Glucose 98 mg/dL (70-100); Potassium 3.7 mmol/L (3.5-5.0); Sodium 137 mmol/L (135-145); Total Protein 7.1 g/dL (6.4-8.9)
[2019-02-28 21:20] LABS: HCG Pregnancy < 0.60 mIU/mL
[2019-02-28 21:40] LABS: Acetaminophen < 15 mcg/mL; Alcohol < 10 mg/dL (<10); Salicylate < 2.50 mg/dL (<30)
[2019-02-28 21:42] LABS: Urine Appearance Cloudy; Urine Bilirubin Negative (Negative); Urine Blood Negative (Negative); Urine Color Yellow; Urine Glucose Negative (Negative); Urine Ketones Negative (Negative); Urine Nitrite Negative (Negative); Urine Protein Negative (Negative); Urine Specific Gravity 1.017 (1.010-1.030); Urine Urobilinogen Negative (Negative)
--- OUTSIDE RECORDS SUMMARY | 2019-02-28 21:54 | XMS REPORT | Continuity of Care Document ---
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 Anxiety state Denise Roper MD, PHD Onset: 02/15/2019 Social History Type Date Description Comments Sex Unknown Tobacco Use Start: Unknown Never Smoked Cigarettes Smoking Status Reviewed: 02/15/19 Never Smoked Cigarettes Tobacco Use Start: Unknown Patient has never smoked Allergies, Adverse Reactions, Alerts Description No Known Drug Allergies Medications Active Medications SIG Qnty Indications Ordering Provider Date D3 Maximum Strength 1 cap by mouth 90caps F33.1 Denise Roper, 2018 every day with MD PHD 5000Unit Capsules food Buspirone HCL 1 tab by mouth 90tabs F41.9 Denise Roper, 02/15/2019 10mg three times a day PHD AREN Tablets after meals as needed for anxiety. Gabapentin 1-2 tab by mouth 60caps M79.7 Denise Roper, 02/08/2019 300mg at bedtime PHD AREN Capsules Topiramate Take 3.5 tablets 120tabs Denise Roper, 02/01/2019 50mg daily for 1-2 PHD AREN Tablets weeks, then down 3 tablets daily for 1-2 weeks, will continue to taper off as tolerated. Hydroxyzine HCL 1-2 by mouth 14tabs Denise [...] Fast Dissolve 1 tab by mouth 90tabs F33.1 Denise Roper, 05/31/2018 every day PHD AREN 5000mcg Tablets Dispers Nac 600 1 cap by mouth 90caps F33.1 Denise Roper, 05/31/2018 600mg three times a day PHD AREN Capsules after meals Chromium Picolinate 1 tab by mouth 90tabs F33.1 Denise Roper, 2018 Ultra every morning MD, PHD 500mcg Tablets with 16oz water Venlafaxine HCL ER 1 tablet daily by 90tabs Denise Roper, mouth PHD AREN 150mg Tablets ER 24HR Venlafaxine HCL ER 1 by mouth every 90caps Denise Roper, day MD PHD 37.5mg Caps ER 24HR Cranberry 1 by mouth every Unknown 200mg day Capsules Multi Vitamin Daily 1 by mouth every Unknown day Tablets Calcium, Magnesium, 1 by mouth every Unknown Zinc day Vitamin D3 Maximum 1 a a week Unknown Strength 5000Unit Capsules Vitamin B-12 1 tabl by mouth Unknown Natural daily 1000mcg Tablets History Medications Gabapentin 1 caps by mouth at 30caps M79.7 [place], 02/01/2019 - 100mg bedtime as needed MD Denise, 02/08/2019 Capsules PHD Biotin 5000 1 by mouth every day [place], 12/14/2018 - 5mg MD Denise, Unknown Capsules PHD Biotin 1 by mouth every day [place], 12/14/2018 - 2500mcg MD Denise, 12/14/2018 Capsules PHD Biotin takes 2,000 mcg [place], 12/14/2018 - 1000mcg daily MD Denise, Unknown Tablets PHD Fluconazole 1 by mouth once 1tabs Z97.5 [place], 09/13/2018 - 150mg MD Denise, 10/18/2018 Tablets PHD Clindamycin HCL 1 cap by mouth twice 6caps Z97.5 [place], 09/13/2018 - a day for 3 days MD Denise, Unknown 300mg Capsules PHD Sprintec 28 1 tab by mouth every 168tabs N92.1 [place], 08/23/2018 - day continuously MD Denise, 09/07/2018 0.25-35mg-mcg PHD Tablets Immunizations Description No Information Available Vital Signs Date Vital Result Comment 02/15/2019 1:41pm BP Systolic 131 mmHg BP Diastolic 83 mmHg Body Temperature 98.4 F Heart Rate 89 /min Respiratory Rate 14 /min Weight 255.00 lb O2 % BldC Oximetry 96 % 02/01/2019 3:20pm BP Systolic 117 mmHg BP Diastolic 81 mmHg Body Temperature 97.5 F Heart Rate 90 /min Respiratory Rate 16 /min Height 62 inches 5'2" Weight 254.00 lb BMI (Body Mass Index) 46.5 kg/m2 BSA (Body Surface Area) 2.12 m2 Manning body weight in kilograms 50 kg O2 % BldC Oximetry 98 % Results Test Date Facility Test Result H/L Range Note Drugs Of 02/08/2019 [facility] Amphetamines Negative 1 Abuse-Urine [address] (Urine) Screen [address] [place] [address] [phone] Barbiturates (Urine) Negative Benzodiazepines (Urine) Negative Cannabinoids (Urine) Negative Cocaine Metabolite (Urine) Negative Methadone (Urine) Negative Opiates (Urine) Negative Urine Cutoffs * 2 Urine Culture 02/08/2019 [facility] Urine Culture URETHRAL NOHEMY [address] [place] [address] [phone] Quantity 10,000 - 100,000 <SEE NOTE> 3 CBC W/Automated 02/08/2019 [facility] White Blood 7.2 K/uL Normal 3.1-10.[address] [place] [address] [phone] Red Blood Count 4.68 M/uL Normal 3.90-5.40 Hemoglobin 13.6 gm/dL Normal 11.6-15.8 Hematocrit 42.9 % Normal 36.0-46.1 Mean Cell Volume 91.7 fl Normal 80.9-99.0 Mean Corpuscular HGB 29.1 pg Normal 25.9-32.7 Mean Corpuscular HGB Conc 31.7 g/dL Normal 30.8-34.3 Platelet Count 267 K/uL Normal 155-360 Red Cell Distri Width SD 42.5 fl Normal 36-47 Red Cell Distri Width %CV 12.6 % Normal 11.7-14.4 Mean Platelet Volume 8.8 fl Low 8.9-12.4 Neut% 57.4 % Normal 28.0-68.0 Lymph % 33.1 % Normal 20.0-42.0 [place] % 7.4 % Normal 4.3-13.2 Eo% 1.4 % Normal 0.0-6.6 Bas% 0.4 % Normal 0.0-1.1 Immature Grans 0.3 % Normal 0.0-5.0 NRBC % 0.0 /100WBC < 10/ 100 WBC Neut# 4.10 K/uL Normal 1.8-7.0 Lymph # 2.37 K/uL Normal 1.0-4.0 [place] # 0.53 K/uL Normal 0.3-0.9 Eos # 0.10 K/uL Normal 0.0-0.5 Baso # 0.03 K/uL Normal 0.0-0.1 Immature Grans Absolute 0.02 K/uL NRBC # 0.00 K/uL Laboratory test 02/08/2019 [facility] Salicylate < 1.7 Low 2.8-20.0 [address] mg/[place] [address] [phone] CBC Auto Diff 01/25/2019 [facility] White Blood 7.3 Normal 3.5-10.8 [phone] Count 10^3/uL Red Blood Count 4.78 10^6/uL Normal 3.70-4.87 [...] Blood Cells % 0.0 Comp Metabolic 01/25/2019 [facility] Sodium 137 mmol/ L Normal 135-145 Panel [phone] Potassium 3.6 mmol/L Normal 3.5-5.0 Chloride 108 [...] Egfr Non- 100.1 >60 Egfr 121.1 >60 5 Laboratory test 01/25/2019 [facility] Acetaminophen < 15 g/mL 6 finding [phone] Alcohol < 10 mg/dL Normal <10 Salicylate < 2.50 mg/dL <30 HCG < 0.60 mIU/mL 7 TSH (Thyroid Stim Horm) 3.42 mcIU/mL Normal 0.34-5.60 Urinalysis Profile 01/25/2019 [facility] Urine Color Yellow [phone] Urine Appearance Turbid Urine Specific [place] 1.017 Normal 1.010-1.030 Urine pH 7.0 Normal 5-9 Urine Urobilinogen Negative Negative Urine Ketones Negative Negative Urine Protein Negative Negative Urine Leukocytes Negative Negative Urine Blood Negative Negative Urine Nitrite Negative Negative Urine Bilirubin Negative Negative Urine Glucose Negative Negative Urine Drug 01/25/2019 [facility] Urine None Detected None Detect SCR ED & [phone] Amphetamine [facility] Screen Urine Barbiturates Screen None Detected None Detect Urine Benzodiazepine Screen None Detected None Detect Urine Cannabinoids Screen None Detected None Detect Urine Cocaine Screen None Detected None Detect Urine Opiates Screen None Detected None Detect Urine Phencyclidine Screen None Detected None Detect 8 Laboratory test 01/25/2019 [facility] Vitamin B12 237 Normal 180-914 9 finding [phone] pg/mL Laboratory test 01/17/2019 [facility] Vitamin 45.8 30.0-100.0 10, finding [address] D,25-Hydrox ng/mL 11 [place] [address] y [phone] Comprehensive 01/17/2019 [facility] Anti-Dna <1 IU/mL 0-9 12 Madhuri Panel [address] [place] [address] (Gskhdh) [phone] SM Antibody <0.2 AI 0.0-0.9 LIVESTOCK SLAUGHTERER Antibody <0.2 AI 0.0-0.9 Sjogrens Antibodies (Ssa) <0.2 AI 0.0-0.9 Antichromatin Antibodies <0.2 AI 0.0-0.9 Keyonna-1 Antibody <0.2 AI 0.0-0.9 Sjogrens Antibodies (SSB) <0.2 AI 0.0-0.9 Centromere B Antibodies < 0.2 AI 0.0-0.9 Scleroderma Antibodies, SCL-70 <0.2 AI 0.0-0.9 See below: (SEE NOTE) 13 Comprehensive 01/17/2019 [facility] Glucose 89 mg/dL Normal 74-106 Metabolic Panel [address] [place] [address] [phone] BUN 8 mg/dL Normal 7-18 Creatinine 0.8 mg/dL Normal 0.6-1.3 Glom Filtration Rate, Estimate >60 mL/min >60 If >60 mL/min >60 14 BUN/Creat 10.0 ratio Sodium 140 mmol/L Normal [...] Normal 0.2-1.0 Sgot/Ast 14 U/L Low 15-37 15 SGPT/Alt 18 U/L Normal 12-78 Alkaline Phosphatase 61 U/L Normal 45-117 CBC W/Automated 01/17/2019 [facility] White Blood 6.5 K/uL Normal 3.1-10.[address] [place] [address] [phone] Red Blood Count 4.58 M/uL Normal 3.90-5.40 [...] 28.0-68.0 Lymph % 37.8 % Normal 20.0-42.0 [place] % 6.5 % Normal 4.3-13.2 Eo% 2.9 % Normal 0.0-6.6 Bas% 0.3 % Normal 0.0-1.1 Immature Grans 0.3 % Normal 0.0-5.0 NRBC % 0.0 /100WBC < 10/ 100 WBC Neut# 3.36 K/uL Normal 1.8-7.0 Lymph # 2.44 K/uL Normal 1.0-4.0 [place] # 0.42 K/uL Normal 0.3-0.9 Eos # 0.19 K/uL Normal 0.0-0.5 Baso # 0.02 K/uL Normal 0.0-0.1 Immature Grans Absolute 0.02 K/uL NRBC # 0.00 K/uL CCP Igg/Iga 01/17/2019 [facility] CCP Igg/Iga 7 units 0-[address] [place] [address] [phone] Laboratory 01/17/2019 [facility] Rheumatoid Factor < 10.0 Normal 0.0-15. test finding [address] Screen IU/mL 0 [place] [address] [phone] Celiac Disease 01/17/2019 [facility] Immunoglobulin A 303 87-[address] AB [address] mg/[place] [address] [phone] Antigliadin Abs, IgG 2 units 0-19 17 Antigliadin Abs, IgA 4 units 0-19 18 Endomysial IgA Antibody Negative Negative t-Transglutaminase IgA <2 U/mL 0-3 19 t-Transglutaminase IgG <2 U/mL 0-5 20 Laboratory test 01/17/2019 [facility] Sedimentation Rate 72 mm/hr High 2-40 [address] [place] [address] [phone] C-Reactive Protein,Quant 8.6 mg/L High <3.0 Lyme Igg & Igm By 01/17/2019 [facility] Lyme AB Igg By Western . Western Blot [address] [place] [address] [phone] P93 AB Absent . P66 AB Absent . P58 AB Absent . P45 AB Absent . P41 AB Present Abnormal . P39 AB Absent . P30 AB Absent . P28 AB Absent . P23 AB Absent . P18 AB Absent . Lyme Igg WB Interpretation Negative . 22 Lyme AB Igm By Western Blot . P41 AB Absent . P39 AB Absent . P23 AB Absent . Lyme Igm WB Interpretation Negative . 23 Genital Culture W/ 09/07/2018 [facility] Gram Stain GRAM STAIN 24, [address]ain [address] INDIC <[place] [address] NOTE> [phone] Gram Stain MODERATE GR POS. <SEE NOTE> 26 Gram Stain NO WHITE BLOOD C <SEE NOTE> 27 Genital Culture GENITAL NOHEMY Chlmaydia/GC/Trichomonas 09/07/2018 [facility] Chlamydia NEGATIVE Negative PCR [address] trachomatis, [place] [address] PCR [phone] Neisseria gonorrhoeae, PCR NEGATIVE Negative 28 Trichomonas vaginalis PCR NEGATIVE Negative 1 EVAL 2 URINE SPECIMENS ARE SCREENED AT THE LISTED CUTOFFS DRUG CLASS INITIAL TEST LEVEL Amphetamines 1000 ng/mL Barbiturates 200 ng/mL Benzodiazepines 200 ng/mL Cannabinoids 50 ng/mL Cocaine Metabolite 300 ng/mL Methadone 300 ng/mL Opiates 300 ng/mL Any PRESUMPTIVE POSITIVE findings are UNCONFIRMED. Confirmatory testing is suggested if findings are unexpected. Please contact laboratory if confirmatory testing is desired. SPECIMENS ARE HELD FOR 72 HOURS. 3 10,000 - 100,000 CFU/mL 4 THERAPEUTIC RANGE: 15-30 mg/dL POTENTIAL TOXICITY VARIES WITH TIME FROM INGESTION. PLEASE CONSULT APPROPRIATE NOMOGRAM. 5 Because ethnic data is not always readily [...] 15-29 5 Kidney failure <15 (or dialysis) 6 Therapeutic concentration: <50 ug/mL Toxic concentration: >120 ug/mL 7 <5.0 Negative 5.0 - 25.0 Indeterminate (Repeat testing recommended after 72 hours) >25.0 Positive Perimenopausal women can display HCG levels of up to 20 mIU/mL 8 The urine specimen was tested at the listed cutoffs: Drug class test level (ng/mL) Amphetamines 500 Barbiturates 200 Benzodiazepine metabolites 200 Cocaine metabolites 150 Cannabinoids 50 Opiates 300 Pcp 25 Specimen was received without chain of custody. Results should be used for medical purposes only. 9 Normal Range 180 to 914 Indeterminate Range 145 to 180 Deficient Range <145 10 M15.3 M54.5 11 Vitamin D deficiency has been defined by the [place] of [employer] and an Endocrine Society practice guideline as a level of serum 25-OH vitamin D less than 20 ng/mL (1,2). The Endocrine Society went on to further define vitamin D insufficiency as a level between 21 and 29 ng/mL (2). 1. IOM ([place] of [employer]). 2010. Dietary reference intakes for calcium and D. [place]: The National Academies Press. 2. Del PALMER, Quoc VAZQUEZ, Ale MURPHY, et al. Evaluation, treatment, and prevention of vitamin D deficiency: an Endocrine Society clinical practice guideline. JCEM. 2010; 96(7):1911-30. Performed at: - [facility] [id number] Mathematical Technician: Carola Almonte MD, Phone: [phone] Negative <5 Equivocal 5 - 9 Positive >9 13 Autoantibody Disease Association Condition Frequency --------- Antinuclear Antibody, SLE, mixed connective Direct (MADHURI-D) tissue diseases --------- dsDNA SLE 40 - 60% --------- Chromatin Drug induced SLE 90% SLE 48 - 97% --------- SSA (Ro) SLE 25 - 35% Sjogren's Syndrome 40 - 70% Lupus 100% --------- SSB ([place]) SLE 10% Sjogren's Syndrome 30% --------- Sm (anti-Meléndez) SLE 15 - 30% --------- LIVESTOCK SLAUGHTERER Mixed Connective Tissue Disease 95% (U1 nRNP, SLE 30 - 50% anti-ribonucleoprotein) Polymyositis and/or Dermatomyositis 20% --------- Scl-70 (antiDNA Scleroderma (diffuse) 20 - 35% topoisomerase) Crest 13% --------- Keyonna-1 Polymyositis and/or Dermatomyositis 20 - 40% --------- Centromere B Scleroderma - Crest variant 80% 14 Note: Persistent reduction for 3 months or more in an eGFR <60 mL/min/1.73 m2 defines CKD. Patients with eGFR values >/=60 mL/min/1.73 m2 may also have CKD if evidence of persistent proteinuria is present. The original MDRD equation for estimated GFR is not valid for patients less than 18 years of age. Additional information may be found at www.kdoqi.org. 15 Values below the stated reference ranges of AST and ALT can be seen in normal populations. Clinical correlation is suggested. 16 Negative <20 Weak positive 20 - 39 Moderate positive 40 - 59 Strong positive >59 17 Negative 0 - 19 Weak Positive 20 - 30 Moderate to Strong Positive >30 18 Negative 0 - 19 Weak Positive 20 - 30 Moderate to Strong Positive >30 19 Negative 0 - 3 Weak Positive 4 - 10 Positive >10 Tissue Transglutaminase (tTG) has been identified as the endomysial antigen. Studies have demonstr- ated that endomysial IgA antibodies have over 99% specificity for gluten sensitive enteropathy. 20 Negative 0 - 5 Weak Positive 6 - 9 Positive >9 21 This result was obtained with an ESR method that is not based on the standard Westergren Method. When comparing results obtained from the traditional Westergren ESR and this method it is important to refer to the reference range for each method. Method: Capillary Photometry 22 Positive: 5 of the following Borrelia-specific bands: 18,23,28,30,39,41,45,58, 66, and 93. Negative: No bands or banding patterns which do not meet positive criteria. 23 Note: An equivocal or positive EIA result [...] are those recommended by CDC/ASTPHLD. p23=Osp C, f65=ibhqymqhz Note: Sera from individuals with the following may cross react in the Lyme Line Blot assays: other spirochetal diseases (periodontal disease, leptospirosis, relapsing fever, yaws, and pinta); connective autoimmune (Rheumatoid Arthritis and Systemic Lupus Erythematosus and also individuals with Antinuclear Antibody); other infections (Elsa Spotted Fever; Immanuel-Figueroa Virus, and Cytomegalovirus). Performed at: [facility] [id number] Mathematical Technician: Carola Almonte MD, Phone: [phone] Performed at: [facility] [id number] Mathematical Technician: Ramana Flores MD, Phone: [phone] 24 z30.430 25 GRAM STAIN INDICATES NORMAL GENITAL NOHEMY 26 MODERATE GR POS. BACILLI SUGGESTIVE OF LACTOBACILLUS SP. 27 NO WHITE BLOOD CELLS 28 A negative result for either C. trachomatis and/or N. gonorrhoeae does not preclued an infection because results are dependent on adequate specimen collection, absence of inhibitors, and sufficient DNA to be detected. Procedures Date Code Description Status 10/18/2018 87391 Brief Emotional/Behav Assessment W/ Scoring Doc Per Completed Standard Inst 10/18/2018 72814 Removal Of IUD Completed 09/07/2018 53226 Insertion Of Intrauterine Device Completed Medical Devices Description No Information Available Encounters Type Date Location Provider Dx Diagnosis Office Visit 02/01/2019 [facility] Denise Rodriguez, F41.9 Anxiety disorder, 3:15p Je Elliott MD, PHD unspecified M79.7 Fibromyalgia F33.1 Major depressive disorder, recurrent, moderate R53.83 Other fatigue Office Visit 12/14/2018 2:30p [facility] Denise Rodriguez, 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, PHD multiple arthritis R60.0 Localized edema M25.579 Pain in [...] dysphoric disorder Office Visit 09/13/2018 9:00a Family eKnny Roper Z97.5 Presence of Je Walker MD, (intrauterine) PHD contraceptive device F41.9 Anxiety disorder, unspecified Z13.41 Encounter for autism screening Office Visit 09/07/2018 8:30a Family Roper Z30.430 Encounter for Kenny Walker MD, insertion of [...] irregular cycle Assessments Date Code Description Provider 02/15/2019 F33.1 Major depressive disorder, recurrent, Denise Roper MD, PHD moderate 02/15/2019 F41.9 Anxiety disorder, unspecified Denise Roper MD, PHD 02/15/2019 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 Can start with 2 X 100mg Tabs of Gabapentin for a week before going to the 300mg at bedtime. Back up your bedtime medications to 9 pm if possible. Keep the 150mg of Topiramate with the gabapentin for now. Call anytime if you' re having any trouble.F41.9 Anxiety disorder, unspecifiedNew Medication: Buspirone HCL 10 mg - 1 tab by mouth three times a day after meals as needed for anxiety.F44.89 Other dissociative and conversion disordersComments:An emotional support animal will help reduce dissociative episodes. Functional Status Functional Condition Comment Date Status Independent with all ADL's Active Mental Status Description No Information Available Referrals Refer to Dr Reason for Referral Status Appt Date [facility] Need help with PCOS, Mood, Dysmenorrhea, Sent 2019 GnRH, Anti-mullerian, Obesity, etc. affecting mental health and physical health severely [address] [place], [place] [id number] [phone]
[2019-02-28 21:55] LABS: TSH (Thyroid Stimulating Horm) 2.19 mcIU/mL (0.34-5.60)
[2019-02-28 21:58] LABS: Urine Benzodiazepine Screen None Detected (None Detect); Urine Opiates Screen None Detected (None Detect)
[2019-02-28 22:38] LABS: HIV 4th Generation Nonreactive (Nonreactive)
--- NOTE | 2019-03-01 07:14 | ED ---
Progress - Progress Note Progress Note: Patient is a sign out at 07:00 on 03/01/[address] Rochelle Lindsay MD to Dr. Kaylen Curiel MD at shift change, pending evaluation, and disposition. 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 Ole Loera who will discharge the patient with a diagnosis of unspecified depression. At 09:58, patient was given Topamax per patient request. Re-Evaluation - Re-Evaluation First Eval Re-Evaluation Time: 21:24 Change: Unchanged Comment: Pt is medically clear for mental health evaluation. Course/Dx - Diagnoses Provider Diagnoses: Suicidal ideation Discharge ED - Sign-Out/Discharge Documenting (check all that apply): Patient Departure - Discharge, Receiving Sign-Out Receiving patient FROM: Rochelle Lindsay - 07:00 on 03/01/19 - Discharge Plan Condition: Stable Disposition: HOME Patient Education Materials: Depression (ED) Referrals: Denise Roper MD [Primary Care Provider] - - Billing Disposition and Condition Condition: STABLE Disposition: Home - Attestation Statements Document Initiated by Scribe: Yes Documenting Scribe: Padmini Vasquez Provider For Whom Scribe is Documenting (Include Credential): Kaylen Curiel MD Scribe Attestation: Padmini Stewart scribed for Kaylen Curiel MD on 03/01/19 at 1039. Scribe Documentation Reviewed: Yes Provider Attestation: The documentation as recorded by the Padmini keys accurately reflects the service I personally performed and the decisions made by Kaylen sherman MD Status of Scribe Document: Viewed
[2019-03-01] MEDS ORDERED: Topiramate TAB(*) 100 MG PO ONE (09:39)
[2019-03-01] MEDS ORDERED: metFORMIN* 500 MG TAB PO ONE (09:39)
[2019-03-01 10:49] VITALS: BP 131/78
== END 2019-03-01 11:00 | disposition home or self-care (01) ==
LOC: ED 20:22
DX: R45.851 Suicidal ideations (principal); F32.9 Major depressive disorder, single episode, unspecified; F43.10 Post-traumatic stress disorder, unspecified; X58.XXXA Exposure to other specified factors, initial encounter; Y92.9 Unspecified place or not applicable; Z79.899 Other long term (current) drug therapy; E11.9 Type 2 diabetes mellitus without complications; F41.9 Anxiety disorder, unspecified
CPT/HCPCS: 36415; 80053; 80307; 80320; 80329; 81003; 84443; 84702; 85025; 87389; 99284; A9270-GY; G0480

== ENCOUNTER 2019-11-21 21:07 | Inpatient (IN) ==
[2019-11-21 22:10] LABS: ABS Basophils 0.1 10^3/ul (0-0.2); ABS Eosinophils 0.1 10^3/ul (0-0.6); ABS Neutrophils 5.2 10^3/ul (1.5-7.7); Eosinophil % 1.6 %; Hematocrit 43 % (35-47); Hemoglobin 14.5 g/dL (12.0-16.0); Lymphocyte % 32.2 %; Mean Corpuscular HGB Conc 34 g/dL (31-36); Mean Corpuscular Hemoglobin 30 pg (27-31); Mean Corpuscular Volume 88 fL (80-97); Mean Platelet Volume 7.1 fL (7.4-10.4); Nucleated Red Blood Cells % 0.1; Platelet Count 338 10^3/uL (150-450); Red Blood Count 4.87 10^6 /uL (3.70-4.87); Red Cell Distribution Width 13 % (10-15); White Blood Count 9.4 10^3/uL (3.5-10.8)
[2019-11-21 22:26] LABS: Acetaminophen < 15 mcg/mL; Alcohol, S < 10 mg/dL (<10); Anion Gap 9 mmol/L (2-11); BUN/Creatinine Ratio 11.8 (8-20); Blood Urea Nitrogen 9 mg/dL (6-24); CO2 Carbon Dioxide 23 mmol/L (22-32); Chloride 104 mmol/L (101-111); EGFR African American 117.4 (>60); Glucose 101 mg/dL (70-100); Potassium 4.1 mmol/L (3.5-5.0); Salicylate < 2.50 mg/dL (<30); Sodium 136 mmol/L (135-145); Urine Benzodiazepine Screen None Detected (None Detect); Urine Cannabinoids Screen Presumptive Positive (None Detect); Urine Opiates Screen None Detected (None Detect)
[2019-11-21 22:33] LABS: HCG Pregnancy < 0.60 mIU/mL
[2019-11-21 22:51] LABS: Urine Appearance Cloudy; Urine Bilirubin Negative (Negative); Urine Blood 2+ (Negative); Urine Color Amber; Urine Glucose Negative (Negative); Urine Ketones Trace (Negative); Urine Nitrite Negative (Negative); Urine Protein 1+(30 mg/dL) (Negative); Urine Specific Gravity 1.029 (1.010-1.030); Urine Urobilinogen Negative (Negative)
[2019-11-21 23:04] LABS: Urine Bacteria Absent (Absent); Urine Red Blood Cell 2+(6-10/hpf) (Absent); Urine Squamous Epithelial Cell Present (Absent); Urine White Blood Cell Trace(0-5/hpf) (Absent)
[2019-11-22] MEDS ORDERED: Al Hydrox/Mg Hydrox/Simet LIQ 30 ML UDC PO PRN (06:47)
[2019-11-22] MEDS: Vitamin THERAPEUTIC TAB PO SCH (08:46)
[2019-11-22] MEDS: Venlafaxine XR 75 mg PO SCH (10:47)
[2019-11-22] MEDS: Cholecalciferol (VIT D3) 1,000 unit TAB PO SCH (10:47)
[2019-11-22] MEDS: Nystatin TOP POWDER 15 GM BTL TOPICAL SCH ×2 (15:44→21:31)
[2019-11-23 08:24] LABS: HDL Cholesterol 44.6 mg/dL
[2019-11-23] MEDS: Vitamin THERAPEUTIC TAB PO SCH (09:05)
[2019-11-23] MEDS: Cholecalciferol (VIT D3) 1,000 unit TAB PO SCH (09:05)
[2019-11-23] MEDS: Venlafaxine XR 75 mg PO SCH (09:06)
[2019-11-23] MEDS: SPRINTEC PO SCH (09:07)
[2019-11-23 10:01] LABS: Hepatitis A Ab IgM Negative (Negative); Hepatitis B Surface Antigen Nonreactive (Nonreactive)
[2019-11-23 10:02] LABS: Hepatitis B Core IgM Nonreactive (Nonreactive)
[2019-11-23 10:10] LABS: HIV 4th Generation Nonreactive (Nonreactive)
[2019-11-23 10:19] LABS: Hepatitis C Antibody Negative (Negative)
[2019-11-24] MEDS: Cholecalciferol (VIT D3) 1,000 unit TAB PO SCH (09:21)
[2019-11-24] MEDS: Venlafaxine XR 75 mg PO SCH (09:22)
[2019-11-24] MEDS: Vitamin THERAPEUTIC TAB PO SCH (09:22)
[2019-11-24] MEDS: SPRINTEC PO SCH (09:25)
[2019-11-25 08:41] VITALS: BP 131/69
[2019-11-25] MEDS ORDERED: Venlafaxine XR 75 mg PO SCH (09:00)
[2019-11-25] MEDS: Cholecalciferol (VIT D3) 1,000 unit TAB PO SCH (09:00)
[2019-11-25] MEDS: Vitamin THERAPEUTIC TAB PO SCH (09:01)
[2019-11-25] MEDS: SPRINTEC PO SCH (09:02)
[2019-11-25 13:02] LABS: Chlamydia trachomatis NAA Negative (Negative); Neisseria gonorrhoeae (GC) NAA Negative (Negative)
== END 2019-11-25 12:21 | disposition home or self-care (01) | DRG 751 ==
LOC: ED 21:07 → BSU 11-22 06:12
PROVIDERS: ADMIT Psychiatry & Neurology Psychiatry; ATTEND Psychiatry & Neurology Psychiatry

== ENCOUNTER 2020-02-01 13:08 | Inpatient (IN) ==
[2020-02-01 13:58] LABS: ABS Basophils 0.1 10^3/ul (0-0.2); ABS Eosinophils 0.1 10^3/ul (0-0.6); ABS Lymphocytes 2.4 10^3/ul (1.0-4.8); ABS Monocytes 0.6 10^3/ul (0-0.8); Eosinophil % 1.2 %; Hematocrit 41 % (35-47); Hemoglobin 13.9 g/dL (12.0-16.0); Lymphocyte % 33.8 %; Mean Corpuscular HGB Conc 34 g/dL (31-36); Mean Corpuscular Hemoglobin 31 pg (27-31); Mean Corpuscular Volume 89 fL (80-97); Mean Platelet Volume 7.2 fL (7.4-10.4); Platelet Count 259 10^3/uL (150-450); Red Blood Count 4.56 10^6 /uL (3.70-4.87); Red Cell Distribution Width 13 % (10-15); White Blood Count 7.1 10^3/uL (3.5-10.8)
[2020-02-01 14:16] LABS: ALT 26 U/L (7-52); AST 25 U/L (13-39); Albumin/Globulin Ratio 1.2 (1-3); Alkaline Phosphatase 50 U/L (34-104); Anion Gap 8 mmol/L (2-11); BUN/Creatinine Ratio 10.4 (8-20); Blood Urea Nitrogen 8 mg/dL (6-24); CO2 Carbon Dioxide 23 mmol/L (22-32); Calcium 9.3 mg/dL (8.6-10.3); Chloride 104 mmol/L (101-111); EGFR African American 114.5 (>60); EGFR Non-African American 94.6 (>60); Globulin 3.3 g/dL (2-4); Glucose 89 mg/dL (70-100); Potassium 4.2 mmol/L (3.5-5.0); Sodium 135 mmol/L (135-145); Total Protein 7.3 g/dL (6.4-8.9)
[2020-02-01 14:22] LABS: HCG Pregnancy < 0.60 mIU/mL
[2020-02-01 14:27] LABS: Acetaminophen < 15 mcg/mL; Alcohol, S < 10 mg/dL (<10); Salicylate < 2.50 mg/dL (<30)
[2020-02-02] MEDS ORDERED: Al Hydrox/Mg Hydrox/Simet LIQ 30 ML UDC PO PRN (14:01)
[2020-02-02] MEDS: Venlafaxine XR 75 mg PO SCH (14:47)
[2020-02-02] MEDS: N ACETYLCYSTEINE PO SCH ×2 (15:29→22:06)
[2020-02-02] MEDS: [UNRECOGNIZED DRUG - OTHER] PO SCH (15:29)
[2020-02-03] MEDS: Venlafaxine XR 75 mg PO SCH (08:54)
[2020-02-03] MEDS: Cholecalciferol (VIT D3) 1,000 unit TAB PO SCH (08:54)
[2020-02-03 08:58] LABS: HDL Cholesterol 38.1 mg/dL
[2020-02-03] MEDS: N ACETYLCYSTEINE PO SCH ×3 (08:59→21:45)
[2020-02-03] MEDS: [UNRECOGNIZED DRUG - OTHER] PO SCH (08:59)
[2020-02-03] MEDS: CRANBERRY EXTRACT 200 MG PO SCH (08:59)
[2020-02-03] MEDS ORDERED: Vitamin THERAPEUTIC TAB PO SCH (09:00)
[2020-02-03] MEDS ORDERED: Cholecalciferol (VIT D3) 1,000 unit TAB PO SCH (09:00)
[2020-02-03] MEDS ORDERED: Influenza VAC *QUAD* 2020-21* 0.5 ML SYRINGE IM ONE (09:00)
[2020-02-03] MEDS: CMCS - OMEGA-3 FATTY ACID 1000 mg(NF) PO SCH (17:59)
[2020-02-04] MEDS: CRANBERRY EXTRACT 200 MG PO SCH (08:54)
[2020-02-04] MEDS: N ACETYLCYSTEINE PO SCH ×3 (08:55→22:11)
[2020-02-04] MEDS: CMCS - OMEGA-3 FATTY ACID 1000 mg(NF) PO SCH (08:55)
[2020-02-04] MEDS: Cholecalciferol (VIT D3) 1,000 unit TAB PO SCH (08:56)
[2020-02-04] MEDS: Venlafaxine XR 75 mg PO SCH ×2 (08:57)
[2020-02-04] MEDS: [UNRECOGNIZED DRUG - OTHER] PO SCH (08:58)
[2020-02-05] MEDS: Cholecalciferol (VIT D3) 1,000 unit TAB PO SCH (08:58)
[2020-02-05] MEDS: [UNRECOGNIZED DRUG - OTHER] PO SCH (08:59)
[2020-02-05] MEDS: CMCS - OMEGA-3 FATTY ACID 1000 mg(NF) PO SCH (08:59)
[2020-02-05] MEDS: Venlafaxine XR 75 mg PO SCH ×2 (08:59)
[2020-02-05] MEDS: CRANBERRY EXTRACT 200 MG PO SCH (09:01)
[2020-02-05] MEDS: N ACETYLCYSTEINE PO SCH ×3 (09:02→21:25)
[2020-02-06] MEDS: CMCS - OMEGA-3 FATTY ACID 1000 mg(NF) PO SCH (08:25)
[2020-02-06] MEDS: [UNRECOGNIZED DRUG - OTHER] PO SCH (08:26)
[2020-02-06] MEDS: Cholecalciferol (VIT D3) 1,000 unit TAB PO SCH (08:27)
[2020-02-06] MEDS: Venlafaxine XR 75 mg PO SCH ×2 (08:28)
[2020-02-06] MEDS: CRANBERRY EXTRACT 200 MG PO SCH (08:31)
[2020-02-06] MEDS: N ACETYLCYSTEINE PO SCH ×3 (08:31→21:58)
[2020-02-07] MEDS: [UNRECOGNIZED DRUG - OTHER] PO SCH (08:50)
[2020-02-07] MEDS: Cholecalciferol (VIT D3) 1,000 unit TAB PO SCH (08:50)
[2020-02-07] MEDS: CMCS - OMEGA-3 FATTY ACID 1000 mg(NF) PO SCH (08:51)
[2020-02-07] MEDS: Venlafaxine XR 75 mg PO SCH (08:51)
[2020-02-07] MEDS: CRANBERRY EXTRACT 200 MG PO SCH (09:46)
[2020-02-07] MEDS: N ACETYLCYSTEINE PO SCH ×3 (09:47→21:21)
[2020-02-07 20:18] VITALS: BP 122/71
[2020-02-08] MEDS: Cholecalciferol (VIT D3) 1,000 unit TAB PO SCH (08:30)
[2020-02-08] MEDS: [UNRECOGNIZED DRUG - OTHER] PO SCH (08:30)
[2020-02-08] MEDS: CMCS - OMEGA-3 FATTY ACID 1000 mg(NF) PO SCH (08:31)
[2020-02-08] MEDS: N ACETYLCYSTEINE PO SCH (08:31)
[2020-02-08] MEDS: CRANBERRY EXTRACT 200 MG PO SCH (08:31)
[2020-02-08] MEDS: Venlafaxine XR 75 mg PO SCH (08:31)
== END 2020-02-08 13:35 | disposition home or self-care (01) | DRG 751 ==
LOC: ED 13:08 → BSU 02-02 08:42
PROVIDERS: ADMIT Psychiatry & Neurology Psychiatry; ATTEND Psychiatry & Neurology Psychiatry

== ENCOUNTER 2021-04-29 18:39 | Inpatient (IN) ==
[2021-04-29 20:01] LABS: ABS Eosinophils 0.2 10^3/ul (0-0.6); ABS Lymphocytes 2.8 10^3/ul (1.0-4.8); ABS Monocytes 0.5 10^3/ul (0-0.8); ABS Neutrophils 4.4 10^3/ul (1.5-7.7); Eosinophil % 2.1 %; Hematocrit 40 % (35-47); Hemoglobin 13.4 g/dL (12.0-16.0); Mean Corpuscular HGB Conc 34 g/dL (31-36); Mean Corpuscular Hemoglobin 29 pg (27-31); Mean Corpuscular Volume 86 fL (80-97); Mean Platelet Volume 6.7 fL (7.4-10.4); Platelet Count 299 10^3/uL (150-450); Red Blood Count 4.65 10^6 /uL (3.70-4.87); Red Cell Distribution Width 13 % (10-15)
[2021-04-29 20:03] LABS: Urine Appearance Clear; Urine Bilirubin Negative (Negative); Urine Blood 2+ (Negative); Urine Color Straw; Urine Glucose Negative (Negative); Urine Ketones Negative (Negative); Urine Nitrite Negative (Negative); Urine Protein Negative (Negative); Urine Specific Gravity 1.005 (1.002-1.030); Urine Urobilinogen Negative (Negative)
[2021-04-29 20:07] LABS: Urine Bacteria Absent (Absent); Urine Red Blood Cell Trace(0-2/hpf) (Absent); Urine Squamous Epithelial Cell Present (Absent); Urine White Blood Cell Trace(0-5/hpf) (Absent)
[2021-04-29 20:31] LABS: Urine Benzodiazepine Screen None Detected (None Detect); Urine Cannabinoids Screen Presumptive Positive (None Detect); Urine Opiates Screen None Detected (None Detect)
[2021-04-29 20:56] LABS: Acetaminophen < 15 mcg/mL; Alcohol, S < 13 mg/dL (<13); Salicylate < 2.50 mg/dL (<30)
[2021-04-29 21:00] LABS: HCG Pregnancy < 0.60 mIU/mL
[2021-04-29 21:04] LABS: TSH Ultra Thyroid Stim Horm 4.36 mcIU/mL (0.34-5.60)
[2021-04-29 21:31] LABS: Albumin 3.9 g/dL (3.2-5.2); Calcium 9.2 mg/dL (8.6-10.3)
[2021-04-29 21:37] LABS: ALT 19 U/L (7-52); AST 21 U/L (13-39); Albumin/Globulin Ratio 1.2 (1-3); Alkaline Phosphatase 46 U/L (35-149); Blood Urea Nitrogen 10 mg/dL (6-24); Globulin 3.3 g/dL (2-4); Total Protein 7.2 g/dL (6.4-8.9); eGFR CKD-EPI 95.2 (>60)
[2021-04-29 22:06] LABS: Anion Gap 10 mmol/L (2-11); CO2 Carbon Dioxide 24 mmol/L (22-32); Chloride 101 mmol/L (101-111); Sodium 135 mmol/L (135-145)
[2021-04-29 22:33] LABS: Glucose 118 mg/dL (70-100)
[2021-04-29] MEDS ORDERED: Al Hydrox/Mg Hydrox/Simet LIQ 30 ML UDC PO PRN (23:53)
[2021-04-30 01:59] LABS: Lithium 0.25 mmol/L (0.6-1.2)
[2021-04-30] MEDS: Venlafaxine XR 75 mg PO SCH ×2 (08:47→10:35)
[2021-04-30] MEDS: Vitamin THERAPEUTIC TAB PO SCH (08:47)
[2021-04-30] MEDS ORDERED: ETHINYL ESTRADIOL PO SCH (09:00)
[2021-04-30] MEDS ORDERED: NORGESTIMATE PO SCH (09:00)
[2021-04-30] MEDS: NORGESTIMATE PO SCH (21:23)
[2021-04-30] MEDS: ETHINYL ESTRADIOL PO SCH (21:23)
[2021-05-01] MEDS: Venlafaxine XR 75 mg PO SCH (08:45)
[2021-05-01] MEDS: Vitamin THERAPEUTIC TAB PO SCH (08:45)
[2021-05-01] MEDS: NORGESTIMATE PO SCH (20:07)
[2021-05-01] MEDS: ETHINYL ESTRADIOL PO SCH (20:07)
[2021-05-01] MEDS ORDERED: Lithium Carbonate ER 450mg TAB PO SCH (21:00)
[2021-05-02 08:21] VITALS: BP 137/81
[2021-05-02] MEDS: Venlafaxine XR 75 mg PO SCH (08:31)
[2021-05-02] MEDS: Vitamin THERAPEUTIC TAB PO SCH (08:31)
== END 2021-05-02 12:00 | disposition home or self-care (01) | DRG 754 ==
LOC: ED 18:39 → BSU 04-30 00:56
PROVIDERS: ADMIT Psychiatry & Neurology Psychiatry; ATTEND Psychiatry & Neurology Psychiatry